=== PATIENT | female | born 1950 | race Caucasian/White ===

== ENCOUNTER 2022-11-06 13:16 | Emergency (ER) | payer OTHER ==
--- OUTSIDE RECORDS SUMMARY | 2022-11-06 13:20 | XMS REPORT | Clinical Summary ---
:1950 Author Organization [facility] MD Fine [facility] Address [address] [place] [address] Care Team Providers Name Role Phone Carlos Ramirez APN Primary Care Provider Allergies No known active allergies Medications Medication Sig Dispensed Refills Start Date End Date Status propranolol Take 120 0 12/18/2018 Active (INDERAL LA) 120 mg capsules 24 hr capsule (14,400 mg) by mouth daily. LANTUS SOLOSTAR Inject 75 0 04/26/2019 Act kishor U-100 INSULIN 100 Units under unit/mL (3 mL) the skin twice insulin pen daily. furosemide (LASIX) Take 1 tablet 0 01/21/2016 Active 20 mg tablet (20 mg) by mouth daily. escitalopram Take 1 tablet 0 10/26/2002 Ac tive (LEXAPRO) 20 mg (20 mg) by tablet mouth daily. amLODIPine Take 1 tablet 0 Activ e (NORVASC) 10 mg (10 mg) by tablet mouth daily. zolpidem (AMBIEN) Take 1 tablet 0 12/25/2017 Active 10 mg tablet (10 mg) by mouth at bedtime. POTASSIUM CHLORIDE Take 20 mEq by 0 08/06/200910/21 Discontinued ORAL mouth daily. Active Problems Problem Noted Date Renal mass 04/26/2019 Encounters Date Type Specialty Care Team Description 10/21/2022 Telemedicine Urology Floyd Robles Renal mass; MD Otto Acquired comple x renal cyst 10/17/2022 Ancillary Procedure Radiology Floyd Robles Renal m ass; MD Otto Acquired comple x renal cyst 10/17/2022 Ancillary Procedure Radiology Floyd Robles Renal m ass; MD Otto Acquired comple x renal cyst 10/17/2022 Travel after 11/06/2021 Medical History Medical History Date Comments Renal mass 04/26/2019 Social History Tobacco Use Types Packs/Day Years Used Date Smoking Tobacco: Never Assessed Sex Assigned at Date Recorded Female 07/15/2021 11:24 AM [employer] Job Start Date Occupation Industry Not on file Not on file Not on file COVID-19 Exposure Response Date Recorded In the last 10 days, have you been in contact with No / Unsu re 10/17/2022 7:37 AM CDT someone who was confirmed or suspected to have Coronavirus/COVID-19? Obstetrics History Last Filed Vital Signs Vital Sign Reading Time Taken Comments Blood Pressure - - Pulse - - Temperature - - Respiratory Rate - - Oxygen Saturation - - Inhaled Oxygen Concentration - - Weight 113.6 kg (250 lb 7.1 oz) 10/17/2022 7:42 AM CDT Height - - Body Mass Index 39.31 09/30/2021 11:16 AM CDT Plan of Treatment Date Type Specialty Care Team Description 10/23/2023 Lab Lab Carlos Ramirez AP N [address] [place], [place] [address] (Wo rk) 10/23/2023 Ancillary Procedure Radiology Carlos Ramirez APN [address] [place], [place] [address] (Wo rk) 10/23/2023 Ancillary Procedure Radiology Carlos Ramirez APN [address] [place], [place] [address] (Wo rk) 10/27/2023 Telemedicine Urology Carlos Ramirez AP N [address] [place], [place] [address] (Wo rk) Health Maintenance Due Date Last Done Comments COVID-19 Vaccination (2 - Moderna series) 08/23/20202020 Procedures Procedure Name Priority Date/Time Associated Comments Diagnosis CT ABDOMEN W CONTRAST Routine 10/17/2022 9:05 Renal mass Results for this AM CDT Acquired complex procedure a re in renal cyst the results section. XR CHEST 2 VW Routine 10/17/2022 8:03 Renal mass Results for this AM CDT Acquired complex procedure a re in renal cyst the results section. FRACTIONATED BILIRUBIN Routine 10/17/2022 7:33 Renal mas s Results for this AM CDT Acquired complex procedure a re in renal cyst the results section. TOTAL PROTEIN Routine 10/17/2022 7:33 Renal mass Results for this AM CDT Acquired complex procedure a re in renal cyst the results section. ASPARTATE Routine 10/17/2022 7:33 Renal mass Results for this AMINOTRANSFERASE AM CDT Acquired complex procedu re are in renal cyst the results section. ALANINE AMINOTRANSFERASE Routine 10/17/2022 7:33 Renal m ass Results for this AM CDT Acquired complex procedure a re in renal cyst the results section. ALKALINE PHOSPHATASE Routine 10/17/2022 7:33 Renal mass Results for this AM CDT Acquired complex procedure a re in renal cyst the results section. ALBUMIN LEVEL Routine 10/17/2022 7:33 Renal mass Results for this AM CDT Acquired complex procedure a re in renal cyst the results section. CALCIUM LEVEL TOTAL Routine 10/17/2022 7:33 Renal mass Results for this AM CDT Acquired complex procedure a re in renal cyst the results section. .GLOMERULAR FILTRATION Routine 10/17/2022 7:33 Renal mas s Results for this RATE AM CDT Acquired complex procedure a re in renal cyst the results section. SERUM CREATININE Routine 10/17/2022 7:33 Renal mass Results for this AM CDT Acquired complex procedure a re in renal cyst the results section. ELECTROLYTE PANEL Routine 10/17/2022 7:33 Renal mass Results for this AM CDT Acquired complex procedure a re in renal cyst the results section. BLOOD UREA NITROGEN Routine 10/17/2022 7:33 Renal mass Results for this AM CDT Acquired complex procedure a re in renal cyst the results section. GLUCOSE LEVEL Routine 10/17/2022 7:33 Renal mass Results for this AM CDT Acquired complex procedure a re in renal cyst the results section. COMPREHENSIVE METABOLIC Routine 10/17/2022 7:33 Renal ma ss PANEL AM CDT Acquired complex renal cyst COMPLETE BLOOD COUNT W/ Routine 10/17/2022 7:33 Renal ma ss Results for this INDICES AM CDT Acquired complex procedure a re in renal cyst the results section. LACTATE DEHYDROGENASE Routine 10/17/2022 7:33 Renal mass Results for this AM CDT Acquired complex procedure a re in renal cyst the results section. after 11/06/[address] Abdomen with Contrast (10/17/2022 9:05 AM CDT) Anatomical Region Laterality Modality Abdomen Computed Tomography Specimen (Source) Anatomical Collection Method Collection Time Re ceived Time Location / / Volume Laterality 10/17/2022 9:22 AM CDT Impressions 10/17/2022 10:24 AM CDT 1. A 2 cm hypodense mass in the interpolar left kidney is stable compared to September 2021, minimally increased in size compared to 2019. Previously showed mild enhancement. 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 2. A 1cm interpolar cystic lesion in t he right kidney has increased in size from 0.5cm, and shows some nodularity vs. septation. Bosniak 2F. 3. 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 4. Stable small nonspecific lung nodul es. I personally reviewed these image(s) jacquie gamboa with the resident's/fellow's interpretations, certify that if a procedure was performed I was physically present, and agree with the final report. Narrative 10/17/2022 10:24 AM CDT Examination: CT ABDOMEN W CONTRAST, 10/17 9:05 AM Clinical History: Renal mass Acquired complex renal cyst Indication: hx Bosniak I/II renal cysts on active surveillance Comparison: CT abdomen 09/22/2021. Technique: CT of the abdomen was perform ed with intravenous contrast. Findings: Several pulmonary and subpleural nodules annotated on series 5 are stable going back to 09/05/2020. There is minimal fibrosis and atelectasi s in the lung bases, similar to prior. Small hepatic hypodensity in segment 5 l ikely represents cyst. The liver is otherwise unremarkable. Status post cholecystectomy. 1.1 cm cystic lesion of the pancreatic h ead is stable compared to 09/30/2021. The spleen is unremarkable. Bilateral adrenal nodules are stable. Kidneys: Hypodense lesion in the interpolar left kidney (series 5 image 77) measuring 2 cm is stable since 2019. A 1 cm cortical cyst with some nodularit y or septation in the interpolar right kidney image 57 series 7 has increased in size previously 0.5 cm. Cyst in the lower pole of the left kidne y (series 5 image 87) has decreased in size to 0.9 cm, previously 1.3 cm. Cyst at the superior pole the left kidne y has increased in size to 1.6 cm (series 5 image 62), previously 1.3 cm. The visualized ureters are within normal limits. Moderate degenerative changes of the tho racolumbar spine. Status post L4-L5 spinal fusion. No soft tissue abnormality identified. Procedure Note Erik Gifford MD - 10/17/2022 Examination: CT ABDOMEN W CONTRAST, 10/17 9:05 AM Clinical History: Renal mass Acquired complex renal cyst Indication: hx Bosniak I/II renal cysts on active surveillance Comparison: CT abdomen 09/22/2021. Technique: CT of the abdomen was perform ed with intravenous contrast. Findings: Several pulmonary and subpleural nodules annotated on series 5 are stable going back to 09/05/2020. There is minimal fibrosis and atelectasi s in the lung bases, similar to prior. Small hepatic hypodensity in segment 5 l ikely represents cyst. The liver is otherwise unremarkable. Status post cholecystectomy. 1.1 cm cystic lesion of the pancreatic h ead is stable compared to 09/30/2021. The spleen is unremarkable. Bilateral adrenal nodules are stable. Kidneys: Hypodense lesion in the interpolar left kidney (series 5 image 77) measuring 2 cm is stable since 2019. A 1 cm cortical cyst with some nodularit y or septation in the interpolar right kidney image 57 series 7 has increased in size previously 0.5 cm. Cyst in the lower pole of the left kidne y (series 5 image 87) has decreased in size to 0.9 cm, previously 1.3 cm. Cyst at the superior pole the left kidne y has increased in size to 1.6 cm (series 5 image 62), previously 1.3 cm. The visualized ureters are within normal limits. Moderate degenerative changes of the tho racolumbar spine. Status post L4-L5 spinal fusion. No soft tissue abnormality identified. IMPRESSION: 1. A 2 cm hypodense mass in the interpol ar left kidney is stable compared to September 2021, minimally increased in size compared to 2019. Previously showed mild enhancement. 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 2. A 1cm interpolar cystic lesion in the right kidney has increased in size from 0.5cm, and shows some nodularity vs. septation. Bosniak 2F. 3. 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 4. Stable small nonspecific lung nodules . I personally reviewed these image(s) jacquie ng with the resident's/fellow's interpretations, certify that if a procedure was performed I was physically present, and agree with the final report. Floyd Robles MD [facility] CT ORDERABLES X-ray Chest 2 Views (10/17/2022 8:03 AM CDT) Anatomical Region Laterality Modality Chest Digital Radiography Specimen (Source) Anatomical Collection Method Collection Time Re ceived Time Location / / Volume Laterality 10/17/2022 8:04 AM CDT Impressions 10/17/2022 8:04 AM CDT No acute cardiac or pulmonary abnormality is detected. There are no radiographic findings of intrathoracic malignancy. Narrative 10/17/2022 8:04 AM CDT FULL RESULT: Examination: XR CHEST 2 VW, 10/17/2022 8: 03 AM. Clinical History: Renal mass [N28.89 (IC D-10-CM)]. Indication: Staging. Comparison: Chest 09/22/2021. Technique: Posteroanterior, lateral and dual-energy radiographs of the chest. Findings: 1. There are no focal abnormal pulmona ry opacities suspicious for acute infection or malignancy. 2. The mediastinal contours and cardia c silhouette are stable. Procedure Note Андрей Coleman MD - 10/17/2022Formatti ng of this note might be different from the original. FULL RESULT: Examination: XR CHEST 2 VW, 10/17/2022 8: 03 AM. Clinical History: Renal mass [N28.89 (IC D-10-CM)]. Indication: Staging. Comparison: Chest 09/22/2021. Technique: Posteroanterior, lateral and dual-energy radiographs of the chest. Findings: 1. There are no focal abnormal pulmonary opacities suspicious for acute infection or malignancy. 2. The mediastinal contours and cardiac silhouette are stable. IMPRESSION: No acute cardiac or pulmonary abnormalit y is detected. There are no radiographic findings of intrathoracic malignancy. Floyd Robles MD [facility] ORDER REBEKAH (ABNORMAL) .Serum Creatinine (10/17/2022 7:33 AM CDT) athologist Signature Creatinine 1.00 (H) 0.51 - 0.95 [facility] mg/dL Comment: Testing Performed at [facility], [address] [place] [address] Specimen Anatomical Collection Method Collection Time Receive d Time (Source) Location / / Volume Laterality Blood 10/17/2022 7:33 AM 7:34 CDT AM CDT Narrative [facility] - 10/17/2022 8:03 AM CDT [facility] please Floyd Robles MD LAB BLOOD ORDERABLES Performing Organization Address City/State/ZIP Code Phon e Number [facility] [address] [facility] (ABNORMAL) Glomerular Filtration Rate (10/17/2022 7:33 AM CDT) athologist Signature eGFR 59 (L) >=60 [facility] mL/min/1.73 sq. m Comment: The eGFRcr is calculated with the 2020 KD-EPI creatinine equation using creatinine, patient's age, and sex for adults 18 years of age and older. Other factors, especially muscle mass, may affect accuracy and need to be considered. According to the Kidney Disease: Improvi ng Global Outcomes (KDIGO) CKD Work Group 2012 Clinical Practice Guideline, chronic kidney disease (CKD) is defined as the abnormalities of kidney structure or function, present for more than 3 months, with implications for health. CKD should be c lassified by cause, GFR category, and albuminuria category. KDIGO guidelines provide the following GFR categories Stage Description GFR mL/min/1.73 m2 G1* Normal or high >= 90 G2* Mildly decreased 60-89 G3a Mildly to moderately decreased 45-59 G3b Moderately to severely decreased 30- 44 G4 Severely decreased 15-29 G5 Kidney failure <15 *In the absence of evidence of kidney da mage, neither G1 nor G2 fulfill criteria for CKD. Testing Performed at [facility], [address] [facility], [place] [address] Specimen Anatomical Collection Method Collection Time Receive d Time (Source) Location / / Volume Laterality Blood 10/17/2022 7:33 AM 3 7:34 CDT AM CDT Narrative [facility] - 10/17/2022 8:03 AM CDT [facility] please Floyd Robles MD LAB BLOOD ORDERABLES Performing Organization Address City/[facility] Phon e Number [facility] [address] Fractionated Bilirubin (10/17/2022 7:33 AM CDT) athologist Signature Bili Total 0.4 <=1.2 mg/dL [facility] Comment: Indocyanine Green (ICG) may cause falsel y elevated bilirubin results. Total and direct bilirubin must not be measured from samples containing indocyanine green. False elevation of total bilirubin can b e seen in patients with IgG concentrations above 28 g/L. Testing Performed at [facility], [address] [place] [address] Bili Direct <0.2 <=0.3 mg/dL [facility] Comment: Indocyanine Green (ICG) may cause falsel y elevated bilirubin results. Total and direct bilirubin must not be measured from samples containing indocyanine green. Testing Performed at [facility], [address] [place] [address] Bili Indirect See Note 0.0 - 0.9 mg/dL [facility] Comment: Unable to calculate Indirect Bilirubin r esult due to some parameters are outside reportable range Testing Performed at [facility], [address] [place] [address] Specimen Anatomical Collection Method Collection Time Receive d Time (Source) Location / / Volume Laterality Blood 10/17/2022 7:33 AM 3 7:34 CDT AM CDT Narrative [facility] - 10/17/2022 8:03 AM CDT [facility] please Floyd Robles MD LAB BLOOD ORDERABLES Performing Organization Address City/[facility] Code Phon e Number [facility] [place] [address] [address] [facility] Complete Blood Count w/o Differential (10/17/2022 7:33 AM CDT) athologist Signature WBC 9.0 4.0 - 11.0 [facility] K/uL Comment: All components of the CBC perfo rmed at [facility], [address] [facility], [place] [phone] RBC 4.59 4.00 - 5.50 M/uL [facility] Comment: As part of CBC testing performe d at [facility], [address] [place] [address], [place] [phone] Hgb 12.8 12.0 - 16.0 gm/dL [facility] Comment: As part of CBC or as an individ ual orderable testing performed at [facility], [address] [place] [phone] Hct 39.8 37.0 - 47.0 % [facility] Comment: As part of CBC or as an individ ual orderable testing performed at [facility], [facility] [place] [phone] MCV 87 82 - 98 fL [facility] Comment: As part of CBC testing performe d at [facility], [address] [facility], [place] [phone] MCH 27.9 27.0 - 31.0 pg [facility] Comment: As part of CBC testing performe d at [facility], [facility], [place] [phone] MCHC 32.2 31.0 - 36.0 gm/dL [facility] Comment: As part of CBC testing performe d at [facility], [address] [facility], [place] [phone] RDW-SD 43.2 35.1 - 46.3 fL [facility] Comment: As part of CBC testing performe d at [facility], [address] [facility], [place] [phone] RDW-CV 13.4 12.0 - 15.5 % [facility] Comment: As part of CBC testing performe d at [facility], [address] [facility], [place] [phone] Platelet count 226 140 - 440 K/uL [facility] [place] Comment: As part of CBC or as an individ ual orderable testing performed at [facility], [address] [place] [phone] MPV 9.7 4.0 - 10.4 fL [facility] Comment: As part of CBC testing performe d at [place] [phone] Specimen Anatomical Collection Method Collection Time Receive d Time (Source) Location / / Volume Laterality Blood 10/17/2022 7:33 AM 3 7:34 CDT AM CDT Narrative [facility] - 10/17/2022 7:38 AM CDT [facility] please Floyd Robles MD LAB BLOOD ORDERABLES Performing Organization Address City/State/ZIP Code Phon e Number [facility] [place] [address] [address] [facility] (ABNORMAL) BUN (10/17/2022 7:33 AM CDT) P athologist Signature BUN 26 (H) 6 - 23 mg/dL [facility] Comment: Testing Performed at [facility], [address] [place] [address] Specimen Anatomical Collection Method Collection Time Receive d Time (Source) Location / / Volume Laterality Blood 10/17/2022 7:33 AM 3 7:34 CDT AM CDT Narrative [facility] - 10/17/2022 8:03 AM CDT [facility] please Floyd Robles MD LAB BLOOD ORDERABLES Performing Organization Address City/State/ZIP Code Phon e Number [facility] [place] [address] ALT (10/17/2022 7:33 AM CDT) P athologist Signature ALT 31 <=33 U/L [facility] Comment: Testing Performed at [facility], [address] [place] [address] Specimen Anatomical Collection Method Collection Time Receive d Time (Source) Location / / Volume Laterality Blood 10/17/2022 7:33 AM 3 7:34 CDT AM CDT Narrative [facility] - 10/17/2022 8:03 AM CDT [facility] please Floyd Robles MD LAB BLOOD ORDERABLES Performing Organization Address City/State/ZIP Code Phon e Number [facility] [address] [facility] Aspartate Aminotransferase (10/17/2022 7:33 AM CDT) athologist Signature AST 30 <=32 U/L [facility] Comment: Testing Performed at [facility], [address] [place] [address] Specimen Anatomical Collection Method Collection Time Receive d Time (Source) Location / / Volume Laterality Blood 10/17/2022 7:33 AM 3 7:34 CDT AM CDT Narrative [facility] - 10/17/2022 8:03 AM CDT [facility] please Floyd Robles MD LAB BLOOD ORDERABLES Performing Organization Address City/[facility]/ZIP Code Phon e Number [facility] [address] Total Protein (10/17/2022 7:33 AM CDT) athologist [facility] Total Protein 7.4 6.4 - 8.3 [facility] g/dL Comment: Testing Performed at [facility], [address] [place] [address] Specimen Anatomical Collection Method Collection Time Receive d Time (Source) Location / / Volume Laterality Blood 10/17/2022 7:33 AM 3 7:34 CDT AM CDT Narrative [facility] - 10/17/2022 8:03 AM CDT [facility] please Floyd Robles MD LAB BLOOD ORDERABLES Performing Organization Address City/State/ZIP Code Phon e Number [facility] [address] [facility] (ABNORMAL) Alkaline Phosphatase (10/17/2022 7:33 AM CDT) athologist Signature Alk Phos 113 (H) 35 - 104 [facility] U/L Comment: Testing Performed at [facility], [address] [place] [address] Specimen Anatomical Collection Method Collection Time Receive d Time (Source) Location / / Volume Laterality Blood 10/17/2022 7:33 AM 3 7:34 CDT AM CDT Narrative [facility] - 10/17/2022 8:03 AM CDT [facility] please Floyd Robles MD LAB BLOOD ORDERABLES Performing Organization Address City/[facility] Code Phon e Number [facility] [address] LDH (10/17/2022 7:33 AM CDT) athologist Signature LDH 166 135 - 214 [facility] U/L Comment: Results greater than 1651 U/L may not be reliable due to matrix effect with extended dilution as it exceeds the aircraft avionics technician's recommended limit. Caution should be exercised when interpreting such values and done in conjunction with clinical context. [place] [address] Specimen Anatomical Collection Method Collection Time Receive d Time (Source) Location / / Volume Laterality Blood 10/17/2022 7:33 AM 3 7:34 CDT AM CDT Narrative [facility] - 10/17/2022 8:06 AM CDT [facility] please Floyd Robles MD LAB BLOOD ORDERABLES Performing Organization Address City/[facility] Code Phon e Number [facility] [address] (ABNORMAL) Glucose Level (10/17/2022 7:33 AM CDT) athologist Signature Glucose Level 166 (H) 70 - 99 [facility] mg/dL Comment: Effective 01/30/16, the glucose reference intervals have been updated based on [place] [employer] guidelines (Standards of Medical Care in Diabetes 2016. Diabetes Care 2016; 39: S13-S22). Fasting blood glucose: Normal: 70 99 mg/dL Impaired fasting glucose (increased risk for diabetes or pre-diabetes): 100- 125 mg/dL Diabetes mellitus: >/=126 mg/dL Random blood glucose: Normal: 70-199 mg/dL Note: Random glucose >100 mg/dL is assoc iated with increased risk for diabetes [place] [address] Specimen Anatomical Collection Method Collection Time Receive d Time (Source) Location / / Volume Laterality Blood 10/17/2022 7:33 AM 3 7:34 CDT AM CDT Narrative [facility] - 10/17/2022 8:03 AM CDT [facility] please Floyd Robles MD LAB BLOOD ORDERABLES Performing Organization Address City/State/ZIP Code Phon e Number [facility] [place] [address] [address] [facility] Calcium Level (10/17/2022 7:33 AM CDT) athologist Signature Calcium Lvl 9.8 8.4 - 10.2 [facility] mg/dL Comment: Testing Performed at [facility], [address] [place] [address] Specimen Anatomical Collection Method Collection Time Receive d Time (Source) Location / / Volume Laterality Blood 10/17/2022 7:33 AM 3 7:34 CDT AM CDT Narrative [facility] - 10/17/2022 8:03 AM CDT [facility] please Floyd Robles MD LAB BLOOD ORDERABLES Performing Organization Address City/[facility] [facility]/ZIP Code Phon e Number [facility] [address] Albumin Level (10/17/2022 7:33 AM CDT) athologist Signature Albumin Lvl 4.0 3.5 - 5.2 [facility] gm/dL Comment: Testing Performed at [facility], [address] [place] [address] Specimen Anatomical Collection Method Collection Time Receive d Time (Source) Location / / Volume Laterality Blood 10/17/2022 7:33 AM 3 7:34 CDT AM CDT Narrative [facility] [place] - 10/17/2022 8:03 AM CDT [facility] please Floyd Robles MD LAB BLOOD ORDERABLES Performing Organization Address City/State/ZIP Code Phon e Number [facility] [place] [address] [address] [facility] (ABNORMAL) Electrolyte Panel (10/17/2022 7:33 AM CDT) athologist Signature Sodium Lvl 133 (L) 136 - 145 [facility] [place] mEq/L Comment: Testing Performed at [facility], [address], [place] [address] Potassium Lvl 4.9 3.5 - 5.1 mEq/L [facility] [place] Comment: Testing Performed at [facility], [address], [place] [address] Chloride 101 98 - 107 mEq/L [facility] Comment: Testing Performed at [facility], [address], [place] [address] CO2 24 22 - 29 mEq/L [facility] Comment: Testing Performed at [facility], [address], [place] [address] Anion Gap 8 4 - 14 mEq/L [facility] Comment: Testing Performed at [facility], [address] [facility], [place] [address] Specimen Anatomical Collection Method Collection Time Receive d Time (Source) Location / / Volume Laterality Blood 10/17/2022 7:33 AM 3 7:34 CDT AM CDT Narrative [facility] [place] - 10/17/2022 8:03 AM CDT [facility] please Floyd Robles MD LAB BLOOD ORDERABLES Performing Organization Address City/State/ZIP Code Phon e Number [facility] MD [facility] [address] after 11/06/2021 Insurance Payer Benefit Plan / Subscriber ID Effective Phone Address T ype Group Dates [facility] MEDICARE [id number] 2020-Prese [address] [address] Medicare HEALTHCARE ADVANTAGE [place] [employer] [id number] Sasha Mathews Personal/Family Self [address] (Home) [place] [phone] Sasha Mathews Personal/Family Self [address] (Home) [place] [id number] Care Teams Lpn Relationship Specialty Start Date End Date Carlos Ramirez APN PCP - General 11/04/[address] [place] [id number]
--- OUTSIDE RECORDS SUMMARY | 2022-11-06 13:21 | XMS REPORT | Continuity of Care Document ---
:1950 Author Organization [facility] t Address [address] [place] [address] [place] [id number] Care Team Providers Name Role Phone LING SMITH Primary Care Physician Unavailable RYDER CAMARA Attending Clinician Unavailable OLI MEDRANO Attending Clinician Unavailable DAVID HODGES Attending Clinician Unavailable FLOYD AVERY Attending Clinician Unavailable Floyd Avery MD Attending Clinician STELLA HOYOS Attending Clinician Unavailable Stella Hoyos NP Attending Clinician [phone] Jc Russell MD Attending Clinician Kaushal Sales MD Attending Clinician HEATHER RIVAS Attending Clinician Unavailable FER PARKS Attending Clinician Unavailable MARQUISE CRUZ Attending Clinician Unavailable CHIP DAWN Attending Clinician Unavailable SOHAM LIGHT Attending Clinician Unavailable MARIZOL CORRALES Attending Clinician Unavailable OLI RON Attending Clinician Unavailable DARYA HOLDEN Attending Clinician Unavailable CAROLINA HOLLIS Attending Clinician Unavailable FELI ARANDA Attending Clinician Unavailable MD ANA CRISTINA SCHMITT V. Attending Clinician Unavailable ANA CRISTINA SCHMITT Attending Clinician Unavailable ISELA WOODRUFF Attending Clinician Unavailable MD ISELA WOODRUFF Attending Clinician Unavailable ADITYA KELLY Attending Clinician Unavailable ISELA ELAINE Attending Clinician Unavailable DAVIE FREED Attending Clinician Unavailable Jc Russell MD Admitting Clinician CHIP DAWN Admitting Clinician Unavailable SOHAM LIGHT Admitting Clinician Unavailable MD ANA CRISTINA SCHMITT V. Admitting Clinician Unavailable ISELA WOODRUFF Admitting Clinician Unavailable MD ISELA WOODRUFF Admitting Clinician Unavailable Payers Payer Name Policy Type Policy Number Effective Date Expiration Date S ource UHC MEDICARE [id number] 2020 2024 ADVANTAGE 00:00:00 00:00:00 UHC MEDICARE [id number] 2020 ADVANTAGE 00:00:00 UNITED MEDICARE [id number] 2021 O 00:00:00 2 C [id number] 2020 00:00:00 2 C [id number] HUMANA MEDICARE NA 2013 Zheng julian ADVANTAGE PPO 00:00:00 [facility] Problems Condition Condition Condition Status Onset Resolution Last Treating Co mments Source Name Details Category Date Date Treatment Clinician Date Polyneurop Polyneurop Disease Active [facility] T athy athy 12-05 Health 00:00: 00 Multifacto Multifacto Disease Active [facility] T rial rial 12-05 Health peripheral peripheral 00:00: neuropathy neuropathy 00 History of History of Disease Active U T laminectom laminectom 12-05 He alth y y 00:00: 00 Diabetic Diabetic Disease Active [facility] polyneurop polyneurop 12-05 He alth athy athy 00:00: associated associated 00 with type with type 2 diabetes 2 diabetes mellitus mellitus Renal mass Renal mass Disease Active 2018-07 U nivers 0-22 ity of 00:00: [place] 00 MD [facility] Rheumatoid Rheumatoid Disease Active M ethodi arthritis arthritis 01-07 st 00:00: Hospita 00 l History of History of Disease Active M ethodi asbestos asbestos 01-07 st exposure exposure 00:00: Hospit a 00 l Complaints Complaints Disease Active M ethodi of of 12-30 [facility] weakness weakness 00:00: Hospit a of lower of lower 00 l extremity extremity Localized Localized Disease Active [facility] primary primary 03-12 st osteoarthr osteoarthr 00:00: Ho spita itis of itis of 00 l lower leg lower leg Sinus Problem Active [place] [facility] Normal Problem Active [place] [facility] Depression Problem [facility] [place] [facility] Diabetes Diabetes Problem Active 2022-03-15 Memoria mellitus mellitus 07:02:37 l type 2 type 2 [place] (disorder) (disorder) Active Problem 03/15/2022 [facility] History of History Problem Active 2022-03-15 Memoria - of - 07:02:37 l rheumatoid rheumatoid [place] arthritis arthritis (context-d (context-d ependent ependent category) category) Active Problem 03/15/2022 [facility] Myocardial Myocardia Problem Active 2022-03-15 Memoria infarction l 07:02:37 l (disorder) infarction [place] (disorder) Active Problem 03/15/2022 [facility] Hyperchole Hyperchol Problem Active 2022-03-15 Memoria sterolemia esterolemi 07:02:37 l (disorder) a Aditya n (disorder) Active Problem 03/15/2022 [facility] Hypertensi Hypertens Problem Active 2022-03-15 Memoria ve kishor 07:02:37 l disorder, disorder, Herm lesli systemic systemic arterial arterial (disorder) (disorder) Active Problem 03/15/2022 [facility] Kidney Kidney Problem Active 2022-03-15 Mem oria structure structure 07:02:37 l (body (body [place] structure) structure) Active Problem 03/15/2022 cancer/cys t left kidney [facility] Morbid Morbid Problem Active 2022-03-15 Nilay efe obesity obesity 07:02:37 l (disorder) (disorder) [place] Active Problem 03/15/2022 [facility] Obstructiv Obstructi Problem Active 2022-03-15 Memoria e sleep ve sleep 07:02:37 l apnea apnea [place] syndrome syndrome (disorder) (disorder) Active Problem 03/15/2022 [facility] Malignant Malignant Problem Active 2022-03-15 Memoria tumor of tumor of 07:02:37 l kidney kidney [place] (disorder) (disorder) Active Problem 03/15/2022 [facility] Stented Stented Problem Active 2022-03-15 Me moria coronary coronary 07:02:37 l artery artery [place] (finding) (finding) Active Problem 03/15/2022 [facility] Cerebrovas Cerebrova Problem Active 2022-03-15 Memoria cular scular 07:02:37 l accident accident Aditya n (disorder) (disorder) Active Problem 03/15/2022 [facility] Urinary Urinary Problem Active 2022-03-15 Me moria tract tract 07:02:37 l infectious infectious [place] disease disease (disorder) (disorder) Active Problem 03/15/2022 [facility] Visceral Visceral Problem Active 2022-03-15 Memoria (qualifier (qualifier 07:02:37 l value) value) [place] Active Problem 03/15/2022 [facility] Disease Disease Problem Active 2022-03-15 M emoria caused by caused by 07:02:37 l 2019-nCoV nCoV Herm lesli Active Problem 03/15/2022 [facility] Mixed Mixed Problem Active 2022-03-15 Memor ia anxiety anxiety 07:02:37 l and and [place] depressive depressive disorder disorder (disorder) (disorder) Active Problem 03/15/2022 [facility] Asbestosis Asbestosi Problem Active 2022-03-15 Memoria (disorder) s 07:02:37 l (disorder) Aditya n Active Problem 03/15/2022 [facility] Backache Backache Problem Active 2022-03-15 Memoria (finding) (finding) 07:02:37 l Active [place] Problem 03/15/2022 [facility] Coronary Coronary Problem Active 2022-03-15 Memoria arterioscl arterioscl 07:02:37 l erosis erosis [place] (disorder) (disorder) Active Problem 03/15/2022 [facility] Allergies, Adverse Reactions, Alerts Allergy Allergy Status Severity Reaction(s) Onset Inactive Treating Comm ents Source Name Type Date Date Clinician Beta Allergy Active [facility] Adrenerg to 12-05 Health ic substanc 00:00: Blockers e 00 Poison Propensi Active Rash [facility] Jocelin ty to 12-05 Health Extract adverse 00:00: reaction 00 s Fentanyl Propensi Active nausea [facility] ty to 08 Health adverse 00:00: reaction 00 s Pyrethri Propensi Active [facility] ns ty to 08 Health adverse 00:00: reaction 00 s No Known NA Active 2020-07 [place] [facility] s 17:20: Memoria 28 l No Known NA Active 2020-07 [place] Allergie lle s 00:01: Memoria 44 l No Known NA Active [place] Allergie 04-04 lle s 07:10: Memoria 09 l No Known NA Active [place] Allergie 04-03 lle s 12:39: Memoria 49 l No Known NA Active [place] Allergie 04-02 lle s 09:54: Memoria 32 l No Known NA Active [place] Allergie 04-02 lle s 09:51: Memoria 25 l No Known NA Active [place] Allergie 04-02 lle s 09:41: Memoria 53 l No Known NA Active [place] Allergie 04-01 lle s 16:32: Memoria 40 l No Known NA Active [place] Allergie 03-28 lle s 09:22: Memoria 45 l No Known NA Active [place] Allergie 03-27 lle s 13:36: Memoria 59 l No Known NA Active [place] Allergie 03-26 lle s 15:47: Memoria 29 l No Known NA Active [place] Allergie 11-30 lle s 12:46: Memoria 32 l No Known NA Active [place] Allergie 11-28 lle s 09:08: Memoria 19 l No Known NA Active [place] Allergie 11-28 lle s 00:00: Memoria 51 l No Known NA Active [place] Allergie 11-27 lle s 09:29: Memoria 41 l No Known NA Active [place] Allergie 11-26 lle s 15:24: Memoria 22 l No Known NA Active [place] Allergie 11-26 lle s 15:22: Memoria 42 l Codeine Propensi Active Rash [facility] Sulfate ty to 01-05 st adverse 00:00: Hospita reaction 00 l s to drug Codeine Allergy Active Rash [facility] to 01-05 Health substanc 00:00: e 00 FENTANYL Allergy Active N\T\V [facility] 6 00:00: 00 TRAMADOL Allergy Active [facility] 6 00:00: 00 Fentanyl Propensi Active Nausea And [facility]10 [facility] adverse [facility]: [facility] reaction 00 Center s Tramadol Propensi Active [facility] 6[facility]10 [facility] adverse 00:[facility]: Medical reaction 00 Center s Tramadol Propensi Active Other (See Increases Methodi ty to Comments) 6-[address] adverse 00:00: rate Hospita reaction 00 l s to drug Tramadol Allergy Active Other [facility] to 6-10 reaction( Health substanc 00:00: s): Other e 00 (See Comments) Increases heart rate Fentanyl Propensi Active GI Method i ty to Intolerance 8-19 st adverse 00:00: Hospita reaction 00 l s to drug Trimetho Propensi Active GI Method i benzamid ty to Intolerance 4-08 st e Hcl adverse 00:00: Hospita reaction 00 l s to drug Codeine Allergy Active [place] to [facility] substanc [facility] e l [facility]ospita l Trimetho Allergy Active [place] benzamid to lle e substanc [facility] e l [facility]ospita l Beta Allergy Active [place] Adrenerg to lle ic substanc Memoria Blockers e l Hospita l [place] Active Nausea and Memori a vomiting l (disorder) Aditya n fentaNYL fentaNYL Active Memori a l [place] Family History Family Member Diagnosis Comments Start Date Stop Date Source Natural father Kidney disease Method [facility] Natural father COPD [facility] Natural father Cancer [facility] Natural father Heart disease [facility] Natural father Hypertension [facility] Maternal grandfather Cancer Meth [facility] Natural mother Arthritis [facility] Natural mother Hypertension [facility] Natural sister Arthritis [facility] Natural sister Asthma [facility] Social History Social Habit Start Date Stop Date Quantity Comments Source Gender identity [facility] Sexual orientation [facility] Exposure to 2022-10-07 2022-10-17 Not sure [facility] SARS-CoV-2 (event) 00:00:00 07:37:00 [facility] Alcohol intake 2020-04-16 2020-04-16 Current Hinduism 00:00:00 00:00:00 non-drinker of Hospital alcohol (finding) History of Social 2020-04-16 2020-04-[address] function 00:00:00 00:00:00 Hospital Tobacco use and 2017-12-13 2017-12-[address] [facility] kes exposure 00:00:00 00:00:00 [facility] Sex Assigned At [birth year] Hinduism 00:00:00 00:00:00 Hospital Smoking Status Start Date Stop Date Source Social History [facility] Medications Ordered Filled Start Stop Current Ordering Indication Dosage Frequency Signature Comments Components Source Medication Medication Date Date Medication? Clinician (SIG) Name Name amLODIPine Yes 10mg Take 1 Unive rs (NORVASC) 4-17 tablet (10 ity of 10 mg 11:32: mg) by [place] tablet 36 mouth MD daily. [facility] labetalol No 60, SBP Memor ia 03-14 Hold l 13:49: Parameter: [place] 00 less than 100 mmHg, HR Hold Parameter: l... hydrALAZINE No 100, if Mem oria 03-14 HR<60 l 13:49: and/or [place] 00 labetalol 25mg reached., SBP Hold Parameter: less th... Demerol HCl No 12.5 mg = M emoria 03-14 0.25 mL, l 13:49: Injection, [place] 00 IV Push, q5min PRN for shivers, order duration: 2 dose(s)/ti me(s), first dose 03/14/22 8:49:00 CDT, stop date Limited # of times fentaNYL No 25 mcg = Memor ia 03-14 0.5 mL, l 13:49: Injection, [place] 00 IV Push, q5min PRN for pain mild-moder ate (1-6), order duration: 2 dose(s)/ti me(s), first dose 03/14/22 8:49:00 CDT, stop date Limited # of times, if pain still unrelieved after second dose, notify Anesthesio logist for furt... ondansetron No 4 mg = 2 Me moria 9- mL, l 13:49: Injection, [place] 00 IV Push, q15min PRN for nausea/vom iting, order duration: 2 dose(s)/ti me(s), first dose 03/14/22 8:49:00 CDT, stop date Limited # of times promethazin No 12.5 mg, Me moria e IVPB 03-14 Injection, l 13:49: IV [place] 00 Piggyback, Once PRN for severe nausea, infuse over 15 minutes, first dose 03/14/22 8:49:00 CDT diphenhydrA No 12.5 mg = M emoria MINE 03-14 0.25 mL, l 13:49: Injection, [place] 00 IV Push, q15min PRN for allergy symptoms, order duration: 2 dose(s)/ti me(s), first dose 03/14/22 8:49:00 CDT, stop date Limited # of times labetalol No 60, SBP Memor ia 03-14 Hold l 13:49: Parameter: [place] 00 less than 100 mmHg, HR Hold Parameter: l... hydrALAZINE No 100, if Mem oria 03-14 HR<60 l 13:49: and/or [place] 00 labetalol 25mg reached., SBP Hold Parameter: less th... Demerol HCl No 12.5 mg = M emoria - 0.25 mL, l 13:49: Injection, [place] 00 IV Push, q5min PRN for shivers, order duration: 2 dose(s)/ti me(s), first dose 03/14/22 8:49:00 CDT, stop date Limited # of times fentaNYL No 25 mcg = Memor ia 03-14 0.5 mL, l 13:49: Injection, [place] 00 IV Push, q5min PRN for pain mild-moder ate (1-6), order duration: 2 dose(s)/ti me(s), first dose 03/14/22 8:49:00 CDT, stop date Limited # of times, if pain still unrelieved after second dose, notify Anesthesio logist for furt... ondansetron No 4 mg = 2 Me moria 9- mL, l 13:49: Injection, [place] 00 IV Push, q15min PRN for nausea/vom iting, order duration: 2 dose(s)/ti me(s), first dose 03/14/22 8:49:00 CDT, stop date Limited # of times promethazin No 12.5 mg, Me moria e IVPB 03-14 Injection, l 13:49: IV [place] 00 Piggyback, Once PRN for severe nausea, infuse over 15 minutes, first dose 03/14/22 8:49:00 CDT diphenhydrA No 12.5 mg = M emoria MINE 03-14 0.25 mL, l 13:49: Injection, [place] 00 IV Push, q15min PRN for allergy symptoms, order duration: 2 dose(s)/ti me(s), first dose 03/14/22 8:49:00 CDT, stop date Limited # of times labetalol No 60, SBP Memor ia 03-14 Hold l 13:49: Parameter: [place] 00 less than 100 mmHg, HR Hold Parameter: l... hydrALAZINE No 100, if Mem oria 03-14 HR<60 l 13:49: and/or [place] 00 labetalol 25mg reached., SBP Hold Parameter: less th... Demerol HCl No 12.5 mg = M emoria - 0.25 mL, l 13:49: Injection, [place] 00 IV Push, q5min PRN for shivers, order duration: 2 dose(s)/ti me(s), first dose 03/14/22 8:49:00 CDT, stop date Limited # of times fentaNYL No 25 mcg = Memor ia 03-14 0.5 mL, l 13:49: Injection, [place] 00 IV Push, q5min PRN for pain mild-moder ate (1-6), order duration: 2 dose(s)/ti me(s), first dose 03/14/22 8:49:00 CDT, stop date Limited # of times, if pain still unrelieved after second dose, notify Anesthesio logist for furt... ondansetron No 4 mg = 2 Me moria - mL, l 13:49: Injection, [place] 00 IV Push, q15min PRN for nausea/vom iting, order duration: 2 dose(s)/ti me(s), first dose 03/14/22 8:49:00 CDT, stop date Limited # of times promethazin No 12.5 mg, Me moria e IVPB 03-14 Injection, l 13:49: IV [place] 00 Piggyback, Once PRN for severe nausea, infuse over 15 minutes, first dose 03/14/22 8:49:00 CDT diphenhydrA No 12.5 mg = M emoria MINE 03-14 0.25 mL, l 13:49: Injection, [place] 00 IV Push, q15min PRN for allergy symptoms, order duration: 2 dose(s)/ti me(s), first dose 03/14/22 8:49:00 CDT, stop date Limited # of times Saline Lock No 20 mL, Nilay efe Flush 03-14 Soln, IV l 13:19: Push, As Indicated PRN for flush, first dose 03/14/22 8:19:00 CDT [place] 5 No Notes: Max Nilay efe mg-325 mg 03-14 4gm l oral tablet 13:19: acetaminop hen in 24 hours Saline Lock No 20 mL, Nilay efe Flush 03-14 Soln, IV l 13:19: Push, As Indicated PRN for flush, first dose 03/14/22 8:19:00 CDT [place] 5 2021-0 No Notes: Max Nilay efe mg-325 mg 9- 4gm l oral tablet 13:19: acetaminop hen in 24 hours Saline Lock 2021-0 No 20 mL, Nilay efe Flush 03-14 Soln, IV l 13:19: Push, As Indicated PRN for flush, first dose 03/14/22 8:19:00 CDT Walton 5 2021-0 No Notes: Max Nilay efe mg-325 mg 9- 4gm l oral tablet 13:19: acetaminop hen in 24 hours Lidocaine 2021-0 No 5 mg = 0.5 Me moria pf IV start 9-09 mL, l 0.5mL 13:00: Injection, Aditya huerta [TOPS] 00 Subcutaneo us, Once, first dose 03/14/22 8:00:00 CDT, stop date 03/14/22 8:00:00 CDT, For IV Start Lidocaine No 5 mg = 0.5 Me moria pf IV start 9-09 mL, l 0.5mL 13:00: Injection, Aditya huerta [TOPS] 00 Subcutaneo us, Once, first dose 03/14/22 8:00:00 CDT, stop date 03/14/22 8:00:00 CDT, For IV Start Lidocaine 2021-0 No 5 mg = 0.5 Me moria pf IV start 9-09 mL, l 0.5mL 13:00: Injection, Aditya huerta [TOPS] 00 Subcutaneo us, Once, first dose 03/14/22 8:00:00 CDT, stop date 03/14/22 8:00:00 CDT, For IV Start Lactated 2021-0 No IV, start Nilay efe Ringers 03-14 date l Injection 12:54: 03/14/22 Herm lesli 00 7:54:00 CDT, stop date 03/14/22 7:54:00 CDT Lactated 2021-0 No IV, start Nilay efe Ringers 03-14 date l Injection 12:54: 03/14/22 Herm lesli 00 7:54:00 CDT, stop date 03/14/22 7:54:00 CDT Lactated 2-0 No IV, start Nilay efe Ringers 03-14 date l Injection 12:54: 03/14/22 Herm lesli 00 7:54:00 CDT, stop date 03/14/22 7:54:00 CDT lidocaine 2-0 No 100 mg = 5 Me moria 9-09 mL, l 12:48: Injection, [place] 00 IV, Once, first dose 03/14/22 7:48:00 CDT, stop date 03/14/22 7:48:00 CDT propofol 2-0 No 20 mg = 2 Nilay efe 9- mL, l 12:48: Emulsion, [place] 00 IV, Once, first dose 03/14/22 7:48:00 CDT, stop date 03/14/22 7:48:00 CDT lidocaine 2022-0 No 100 mg = 5 Me moria 9- mL, l 12:48: Injection, [place] 00 IV, Once, first dose 03/14/22 7:48:00 CDT, stop date 03/14/22 7:48:00 CDT propofol 2-0 No 20 mg = 2 Nilay efe 9- mL, l 12:48: Emulsion, [place] 00 IV, Once, first dose 03/14/22 7:48:00 CDT, stop date 03/14/22 7:48:00 CDT lidocaine 2-0 No 100 mg = 5 Me moria 9- mL, l 12:48: Injection, [place] 00 IV, Once, first dose 03/14/22 7:48:00 CDT, stop date 03/14/22 7:48:00 CDT propofol 2-0 No 20 mg = 2 Nilay efe 9- mL, l 12:48: Emulsion, [place] 00 IV, Once, first dose 03/14/22 7:48:00 CDT, stop date 03/14/22 7:48:00 CDT LR 500 mL 2-0 No 500 mL, Memor ia 9- IV, 100 l 12:31: mL/hr, [place] 00 start date 03/14/22 7:31:00 CDT, For GI & Pain procedures unless known renal disease then use Normal Saline, 2.25, m2 LR 500 mL 0 No 500 mL, Memor ia 9-09 IV, 100 l 12:31: mL/hr, start date 03/14/22 7:31:00 CDT, For GI & Pain procedures unless known renal disease then use Normal Saline, 2.25, m2 LR 500 mL No 500 mL, Memor ia 9-09 IV, 100 l 12:31: mL/hr, [place] 00 start date 03/14/22 7:31:00 CDT, For GI & Pain procedures unless known renal disease then use Normal Saline, 2.25, m2 labetalol No 60, SBP Memor ia 7-29 Hold l 14:13: Parameter: [place] 00 less than 100 mmHg, HR Hold Parameter: l... hydrALAZINE No 100, if Mem oria - HR<60 l 14:13: and/or [place] 00 labetalol 25mg reached., SBP Hold Parameter: less th... Demerol HCl No 12.5 mg = M emoria - 0.5 mL, l 14:13: Injection, [place] 00 IV Push, q5min PRN for shivers, order duration: 2 dose(s)/ti me(s), first dose 01/31/22 9:13:00 CDT, stop date Limited # of times ondansetron No 4 mg = 2 Me moria 7-29 mL, l 14:13: Injection, [place] 00 IV Push, q15min PRN for nausea/vom iting, order duration: 2 dose(s)/ti me(s), first dose 01/31/22 9:13:00 CDT, stop date Limited # of times promethazin No 12.5 mg, Me moria e IVPB 7- Injection, l 14:13: IV [place] 00 Piggyback, Once PRN for severe nausea, infuse over 15 minutes, first dose 01/31/22 9:13:00 CDT labetalol No 60, SBP Memor ia 7-29 Hold l 14:13: Parameter: [place] 00 less than 100 mmHg, HR Hold Parameter: l... hydrALAZINE 0 No 100, if Mem oria 7-29 HR<60 l 14:13: and/or [place] 00 labetalol 25mg reached., SBP Hold Parameter: less th... Demerol HCl No 12.5 mg = M emoria 7-29 0.5 mL, l 14:13: Injection, [place] 00 IV Push, q5min PRN for shivers, order duration: 2 dose(s)/ti me(s), first dose 01/31/22 9:13:00 CDT, stop date Limited # of times ondansetron No 4 mg = 2 Me moria 7-29 mL, l 14:13: Injection, [place] 00 IV Push, q15min PRN for nausea/vom iting, order duration: 2 dose(s)/ti me(s), first dose 01/31/22 9:13:00 CDT, stop date Limited # of times promethazin No 12.5 mg, Me moria e IVPB 7- Injection, l 14:13: IV [place] 00 Piggyback, Once PRN for severe nausea, infuse over 15 minutes, first dose 01/31/22 9:13:00 CDT labetalol 0 No 60, SBP Memor ia 7-29 Hold l 14:13: Parameter: [place] 00 less than 100 mmHg, HR Hold Parameter: l... hydrALAZINE 0 No 100, if Mem oria 7-29 HR<60 l 14:13: and/or [place] 00 labetalol 25mg reached., SBP Hold Parameter: less th... Demerol HCl No 12.5 mg = M emoria 7-29 0.5 mL, l 14:13: Injection, [place] 00 IV Push, q5min PRN for shivers, order duration: 2 dose(s)/ti me(s), first dose 01/31/22 9:13:00 CDT, stop date Limited # of times ondansetron 0 No 4 mg = 2 Me moria 7-29 mL, l 14:13: Injection, [place] 00 IV Push, q15min PRN for nausea/vom iting, order duration: 2 dose(s)/ti me(s), first dose 01/31/22 9:13:00 CDT, stop date Limited # of times promethazin No 12.5 mg, Me moria e IVPB 7-29 Injection, l 14:13: IV [place] Piggyback, Once PRN for severe nausea, infuse over 15 minutes, first dose 01/31/22 9:13:00 CDT Saline Lock No 20 mL, Nilay efe Flush 7-29 Soln, IV l 13:43: Push, As [place] 00 Indicated PRN for flush, first dose 01/31/22 8:43:00 CDT [place] 5 No Notes: Max Nilay efe mg-325 mg 7-29 4gm l oral tablet 13:43: acetaminop hen in 24 hours Saline Lock No 20 mL, Nilay efe Flush 7-29 Soln, IV l 13:43: Push, As Indicated PRN for flush, first dose 01/31/22 8:43:00 CDT [place] 5 No Notes: Max Nilay efe mg-325 mg 7-29 4gm l oral tablet 13:43: acetaminop hen in 24 hours Saline Lock No 20 mL, Nilay efe Flush 7-29 Soln, IV l 13:43: Push, As Indicated PRN for flush, first dose 01/31/22 8:43:00 CDT [place] 5 No Notes: Max Nilay efe mg-325 mg 7-29 4gm l oral tablet 13:43: acetaminop hen in 24 hours Lactated No IV, start Nilay efe Ringers 7-29 date l Injection 13:39: 01/31/22 Herm lesli 8:39:00 CDT, stop date 01/31/22 8:39:00 CDT Lactated 0 No IV, start Nilay efe Ringers 7-29 date l Injection 13:39: 01/31/22 Herm lesli 00 8:39:00 CDT, stop date 01/31/22 8:39:00 CDT Lactated 2022-0 No IV, start Nilay efe Ringers 7-29 date l Injection 13:39: 01/31/22 Herm lesli 00 8:39:00 CDT, stop date 01/31/22 8:39:00 CDT lidocaine 2021-0 No 30 mg = 3 Mem oria 7-29 mL, l 13:34: Injection, [place] 00 IV, Once, first dose 01/31/22 8:34:00 CDT, stop date 01/31/22 8:34:00 CDT propofol 2021-0 No 30 mg = 3 Nilay efe 7-29 mL, l 13:34: Emulsion, [place] 00 IV, Once, first dose 01/31/22 8:34:00 CDT, stop date 01/31/22 8:34:00 CDT lidocaine 2021-0 No 30 mg = 3 Mem oria 7-29 mL, l 13:34: Injection, [place] 00 IV, Once, first dose 01/31/22 8:34:00 CDT, stop date 01/31/22 8:34:00 CDT propofol 2021-0 No 30 mg = 3 Nilay efe 7-29 mL, l 13:34: Emulsion, [place] 00 IV, Once, first dose 01/31/22 8:34:00 CDT, stop date 01/31/22 8:34:00 CDT lidocaine 2021-0 No 30 mg = 3 Mem oria 7-29 mL, l 13:34: Injection, [place] 00 IV, Once, first dose 01/31/22 8:34:00 CDT, stop date 01/31/22 8:34:00 CDT propofol 2021-0 No 30 mg = 3 Nilay efe 7-29 mL, l 13:34: Emulsion, [place] 00 IV, Once, first dose 01/31/22 8:34:00 CDT, stop date 01/31/22 8:34:00 CDT ketamine 2-0 No 25 mg = Memori a 7-29 2.5 mL, l 13:32: Injection, [place] 00 IV, Once, first dose 01/31/22 8:32:00 CDT, stop date 01/31/22 8:32:00 CDT ketamine 2-0 No 25 mg = Memori a 7-29 2.5 mL, l 13:32: Injection, [place] 00 IV, Once, first dose 01/31/22 8:32:00 CDT, stop date 01/31/22 8:32:00 CDT ketamine 2-0 No 25 mg = Memori a 01-31 2.5 mL, l 13:32: Injection, [place] 00 IV, Once, first dose 01/31/22 8:32:00 CDT, stop date 01/31/22 8:32:00 CDT midazolam 2-0 No 2 mg = 2 Nilay efe 7- mL, l 13:30: Injection, [place] 00 IV, Once, first dose 01/31/22 8:30:00 CDT, stop date 01/31/22 8:30:00 CDT ondansetron 2021-0 No 4 mg = 2 Me moria 7- mL, l 13:30: Injection, [place] 00 IV, Once, first dose 01/31/22 8:30:00 CDT, stop date 01/31/22 8:30:00 CDT midazolam 2021-0 No 2 mg = 2 Nilay efe 7- mL, l 13:30: Injection, [place] 00 IV, Once, first dose 01/31/22 8:30:00 CDT, stop date 01/31/22 8:30:00 CDT ondansetron 2021-0 No 4 mg = 2 Me moria 7- mL, l 13:30: Injection, [place] 00 IV, Once, first dose 01/31/22 8:30:00 CDT, stop date 01/31/22 8:30:00 CDT midazolam 2021-0 No 2 mg = 2 Nilay efe 7- mL, l 13:30: Injection, [place] 00 IV, Once, first dose 01/31/22 8:30:00 CDT, stop date 01/31/22 8:30:00 CDT ondansetron 2021-0 No 4 mg = 2 Me moria 7-29 mL, l 13:30: Injection, [place] 00 IV, Once, first dose 01/31/22 8:30:00 CDT, stop date 01/31/22 8:30:00 CDT LR 500 mL 2021-0 No 500 mL, Memor ia 7 IV, 100 l 11:10: mL/hr, [place] 00 start date 01/31/22 6:10:00 CDT, For Adults unless there is a known renal disease then use Normal Saline, 2.26, m2 LR 500 mL 2022-0 No 500 mL, Memor ia 7-29 IV, 100 l 11:10: mL/hr, start date 01/31/22 6:10:00 CDT, For Adults unless there is a known renal disease then use Normal Saline, 2.26, m2 LR 500 mL 2-0 No 500 mL, Memor ia 7-29 IV, 100 l 11:10: mL/hr, start date 01/31/22 6:10:00 CDT, For Adults unless there is a known renal disease then use Normal Saline, 2.26, m2 Lidocaine 2-0 No 5 mg = 0.5 Me moria pf IV start 7-29 mL, l 0.5mL 11:00: Injection, Aditya huerta [TOPS] 00 Subcutaneo us, Once, first dose 01/31/22 6:00:00 CDT, stop date 01/31/22 6:00:00 CDT, For IV Start Lidocaine 2-0 No 5 mg = 0.5 Me moria pf IV start 7-29 mL, l 0.5mL 11:00: Injection, Aditya huerta [TOPS] 00 Subcutaneo us, Once, first dose 01/31/22 6:00:00 CDT, stop date 01/31/22 6:00:00 CDT, For IV Start Lidocaine 2-0 No 5 mg = 0.5 Me moria pf IV start 7-29 mL, l 0.5mL 11:00: Injection, Aditya huerta [TOPS] 00 Subcutaneo us, Once, first dose 01/31/22 6:00:00 CDT, stop date 01/31/22 6:00:00 CDT, For IV Start olmesartan 2022-0 Yes 40 mg, Memor ia 7-27 Oral, l 18:08: Daily olmesartan 2022-0 Yes 40 mg, Memor ia 7-27 Oral, l 18:08: Daily olmesartan 2022-0 Yes 40 mg, Memor ia 7-27 Oral, l 18:08: Daily Macrobid 2021-0 Yes 100 mg, Memori a 7-27 Oral, l 18:07: Daily Flexeril 2021-0 Yes 10 mg, Memoria 7-27 Oral, qHS l 18:07: Macrobid 2021-0 Yes 100 mg, Memori a 7-27 Oral, l 18:07: Daily Flexeril 2021-0 Yes 10 mg, Memoria 7-27 Oral, qHS l 18:07: [place] 00 Macrobid 2021-0 Yes 100 mg, Memori a 7-27 Oral, l 18:07: Daily Flexeril 2021-0 Yes 10 mg, Memoria 7-27 Oral, qHS l 18:07: HumaLOG 2021-0 Yes Subcutaneo Nilay efe 7-27 us l 18:06: HumaLOG 2021-0 Yes Subcutaneo Nilay efe 7-27 us l 18:06: [place] 00 HumaLOG 2021-0 Yes Subcutaneo Nilay efe 7-27 us l 18:06: [place] 00 buprenorphi 0 Yes APPLY ONE U T ne 5-06 [facility] 00:00: TRANSDERMA 15 MCG/HR 00 LLY EVERY 7 DAYS buprenorphi 2021-0 Yes APPLY ONE U T ne 5-06 [facility]ATCH [facility] 00:00: TRANSDERMA 15 MCG/HR 00 LLY EVERY 7 DAYS potassium 2021-0 Yes 20meq QD Take 20 UT chloride CR 4-11 mEq by Health (Klor-Con 00:00: mouth 1 M20) 20 MEQ 00 (one) time ER tablet each day. potassium 0 Yes 20meq QD Take 20 UT chloride CR 4-11 mEq by Health (Klor-Con 00:00: mouth 1 M20) 20 MEQ 00 (one) time ER tablet each day. amLODIPine 0 Yes QD Take by [place] (Norvasc) 5 3-08 mouth 1 Healt h MG tablet 14:57: (one) time 26 each day. buprenorphi 2021-0 Yes 1{patch Place 1 UT ne 3-08 } patch on Health (Butrans) 14:57: the skin 1 10 MCG/HR 26 (one) time per week. escitalopra 2022-0 Yes 20mg QD Take 20 mg UT m (Lexapro) 3-08 by mouth 1 He alth 20 MG 14:57: (one) time tablet 26 each day. furosemide 2022-0 Yes QD Take by UT (Lasix) 20 3-08 mouth 1 Health MG tablet 14:57: (one) time 26 each day. olmesartan 2022-0 Yes 20mg QD Take 20 mg U T (BENIcar) 3-08 by mouth 1 Heal th 20 MG 14:57: (one) time tablet 26 each day. potassium 2022-0 Yes 20meq QD Take 20 UT chloride 3-08 mEq by Health (Klor-Con) 14:57: mouth 1 20 MEQ 26 (one) time packet each day. propranolol 2022-0 Yes 120mg QD Take 120 U T [place] (Inderal 3-08 mg by [facility] [place]) 120 MG 14:57: mouth 1 24 hr 26 (one) time capsule each day. Do not crush, chew, or split. tiZANidine 2022-0 Yes 4mg Q6H Take 4 mg UT (Zanaflex) 3-08 by mouth Healt h 4 MG tablet 14:57: every 6 26 (six) hours if needed for muscle spasms. Zolpidem 2022-[address] UT Tartrate 10 3-08 under the Hea lth MG 14:57: tongue. sublingual 26 tablet insulin 2-0 Yes 44U Q.5D Inject 44 UT glargine 3-08 Units Health (Lantus) 14:57: under the 100 UNIT/ML 26 skin 2 injection (two) times a day. insulin 2022-0 Yes [id number] Inject UT lispro 3-08 [id number] under the He alth (HumaLOG) 14:57: 3D skin 3 100 UNIT/ML 26 (three) injection times a day if needed for high blood sugar. amLODIPine 2022-0 Yes QD Take by UT (Norvasc) 5 3-08 mouth 1 Healt h MG tablet 14:57: (one) time 26 each day. buprenorphi 2022-0 Yes 1{patch Place 1 UT ne 3-08 } patch on Health (Butrans) 14:57: the skin 1 10 MCG/HR 26 (one) time per week. escitalopra 2022-0 Yes 20mg QD Take 20 mg UT m (Lexapro) 3-08 by mouth 1 He alth 20 MG 14:57: (one) time tablet 26 each day. furosemide 2022-0 Yes QD Take by UT (Lasix) 20 3-08 mouth 1 Health MG tablet 14:57: (one) time 26 each day. olmesartan 2022-0 Yes 20mg QD Take 20 mg U T (BENIcar) 3-08 by mouth 1 Heal th 20 MG 14:57: (one) time tablet 26 each day. potassium 2022-0 Yes 20meq QD Take 20 UT chloride 3-08 mEq by Health (Klor-Con) 14:57: mouth 1 20 MEQ 26 (one) time packet each day. propranolol 202-0 Yes 120mg QD Take 120 U T [place] (Inderal 3-08 mg by Health [place]) 120 MG 14:57: mouth 1 24 hr 26 (one) time capsule each day. Do not crush, chew, or split. tiZANidine 2021-0 Yes 4mg Q6H Take 4 mg UT (Zanaflex) 3-08 by mouth Healt h 4 MG tablet 14:57: every 6 26 (six) hours if needed for muscle spasms. Zolpidem 2021-[address] UT Tartrate 10 3-08 under the Hea lth MG 14:57: tongue. sublingual 26 tablet insulin 2021-0 Yes 44U Q.5D Inject 44 UT glargine 3-08 Units Health (Lantus) 14:57: under the 100 UNIT/ML 26 skin 2 injection (two) times a day. insulin 2021-0 Yes [id number] Inject UT lispro 3-08 [id number] under the He alth (HumaLOG) 14:57: 3D skin 3 100 UNIT/ML 26 (three) injection times a day if needed for high blood sugar. potassium 2019-07 No 10 mEq = 1 Me moria chloride 10 2-17 caps, l mEq oral 19:59: Oral, [place] capsule, 00 Daily extended release potassium 2019-07 No 10 mEq = 1 Me moria chloride 10 2-17 caps, l mEq oral 19:59: Oral, [place] capsule, 00 Daily extended release potassium 2019-07 No 10 mEq = 1 Me moria chloride 10 2-17 caps, l mEq oral 19:59: Oral, [place] capsule, Daily extended release Butrans 2019-07 Yes 1 patches, Nilay efe System 10 2-17 TD, q7day l mcg/hr 19:58: [place] transdermal 00 film, extended release propranolol 2019-07 Yes 120 mg, Mem oria 2-17 Oral, l 19:58: Daily Butrans 2019-07 Yes 1 patches, Nilay efe System 10 2-17 TD, q7day l mcg/hr 19:58: [place] transdermal 00 film, extended release propranolol 2019-07 Yes 120 mg, Mem oria 2-17 Oral, l 19:58: Daily Butrans 2019-07 Yes 1 patches, Nilay efe System 10 2-17 TD, q7day l mcg/hr 19:58: [place] transdermal 00 film, extended release propranolol 2019-07 Yes 120 mg, Mem oria 2-17 Oral, l 19:58: Daily Ambien 2019-07 Yes 10 mg, Memoria 2-17 Oral, qHS l 19:57: amLODIPine 2019-07 Yes 5 mg, Memori a 2-17 Oral, l 19:57: Daily furosemide 2019-07 Yes 20 mg, Memor ia 2-17 Oral, l 19:57: Daily Lantus 2019-07 Yes 44 units, Memori a 2-17 Subcutaneo l 19:57: us, BID Ambien 2019-07 Yes 10 mg, Memoria 2-17 Oral, qHS l 19:57: amLODIPine 2019-07 Yes 5 mg, Memori a 2-17 Oral, l 19:57: Daily furosemide 2019-07 Yes 20 mg, Memor ia 2-17 Oral, l 19:57: Daily Lantus 2019-07 Yes 44 units, Memori a 2-17 Subcutaneo l 19:57: us, BID Ambien 2019-07 Yes 10 mg, Memoria 2-17 Oral, qHS l 19:57: amLODIPine 2019-07 Yes 5 mg, Memori a 2-17 Oral, l 19:57: Daily [place] 00 furosemide 2019-07 Yes 20 mg, Memor ia 2-17 Oral, l 19:57: Daily Lantus 2019- Yes 44 units, Memori a 2-17 Subcutaneo l 19:57: us, BID Albuterol 2019-07 Yes 2 puffs, Nilay efe (Eqv-ProAir 2-17 MDI, q6hr, l HFA) 19:56: PRN wheezing Lexapro 2019- Yes 20 mg, Memoria 2-17 Oral, l 19:56: Daily Albuterol 2019-07 Yes 2 puffs, Nilay efe (Eqv-ProAir 2-17 MDI, q6hr, l HFA) 19:56: PRN wheezing Lexapro 2019- Yes 20 mg, Memoria 2-17 Oral, l 19:56: Daily Albuterol 2019-07 Yes 2 puffs, Nilay efe (Eqv-ProAir 2-17 MDI, q6hr, l HFA) 19:56: PRN wheezing Lexapro 2019- Yes 20 mg, Memoria 2-17 Oral, l 19:56: Daily zolpidem 2019-0 Yes 10mg QD Take 10 mg Met hodi (AMBIEN) 10 8-[address] mg tablet 13:13: nightly as Ho spita 12 needed for l sleep. atorvastati 2019-0 Yes 20mg QD Take 20 mg Methodi n (LIPITOR) 8-[address] 20 MG 13:13: daily. Hospita tablet 12 Default OP l ins amLODIPine 2019-0 Yes 10mg QD Take 10 mg M ethodi (NORVASC) 8-[address] 10 mg 13:13: daily. Hospita tablet 12 l insulin 2020-0 Yes 80U QD Inject 80 Metho di GLARGINE 8-[address] (LANTUS) 13:13: under the Hosp omid 100 unit/mL 12 skin l injection nightly. (vial) insulin 2020-0 Yes [id number] Inject Me thodi lispro 8-[id number] (HUMALOG, 13:13: 3D skin 3 Hospit a ADMELOG) 12 (three) l 100 unit/mL times a injection day before meals. Sliding scale albuterol Yes 2{puff} Q.5D Inhale 2 M ethodi (PROAIR 8-[address] HFA) 90 13:13: (two) Hospita mcg/actuati 12 times a l on inhaler day as needed for wheezing. magnesium Yes 400mg QD Take 400 Met hodi oxide 8-[address] (MAG-OX) 13:13: mouth Hospita 400 mg 12 daily. l (241.3 mg magnesium) tablet propranolol Yes 120mg QD Take 120 M ethodi [place] (INDERAL 8-[address] [place]) 120 MG 13:13: mouth Hospit a 24 hr 12 daily. l capsule LANTUS 2018-07 Yes 75U Inject 75 Univer s SOLOSTAR 0-22 Units ity of U-100 00:00: under the [place] INSULIN 100 00 skin twice MD unit/mL (3 daily. Anderso mL) insulin n [facility] LANTUS Yes 52U QD Inject 52 Method i SOLOSTAR 7-[address] U-100 00:00: under the [facility] INSULIN 100 00 skin l unit/mL nightly injection for 90 (pen) days. propranolol Yes [id number] Take 120 Univers (INDERAL 6-15 capsules ity of [place]) 120 mg 00:00: ([place],400 [place] 24 hr 00 mg) by CT capsule mouth Anderso daily. [facility] zolpidem Yes 10mg Take 1 Univers (AMBIEN) 10 6-22 tablet (10 it y of mg tablet 00:00: mg) by [place] 00 mouth at MD bedtime. Andmegao [facility] zolpidem Yes . [facility] St (AMBIEN) 10 6-22 [facility] mg tablet 00:00: Medical 00 [place] escitalopra Yes . [facility] oxalate 6-05 [facility] (LEXAPRO) 00:00: Medical 20 MG 00 [place] tablet atorvastati Yes . [facility] (LIPITOR) 6-01 [facility] 20 MG 00:00: Medical tablet 00 [place] olmesartan Yes . [facility] (BENICAR) 5-30 [facility] 20 MG 00:00: Medical tablet 00 [place] propranolol Yes . [facility] St (INDERAL 5-30 [facility] [place]) 80 MG 00:00: Medical 24 hr 00 Center capsule magnesium Yes . [facility] St oxide 5-13 [facility] (MAG-OX) 00:00: Medical 400 mg 00 Center tablet potassium Yes . [facility] St chloride SA 5-13 [facility] (K-DUR,KLOR 00:00: Medica l -CON) 20 00 Center MEQ tablet amLODIPine Yes . [facility] St (NORVASC) 5 4-28 [facility] MG tablet 00:00: Medical 00 Center furosemide Yes . [facility] St (LASIX) 20 4-12 [facility] MG tablet 00:00: Medical 00 Center LANTUS Yes . [facility] SOLOSTAR 4-03 [facility] U-100 00:00: Medical INSULIN 100 00 [place] unit/mL (3 mL) InPn furosemide Yes 20mg Take 1 Unive rs (LASIX) 20 7-18 tablet (20 ity of mg tablet 00:00: mg) by [place] 00 mouth MD daily. [facility] furosemide Yes 20mg QD Take 20 mg M ethodi (LASIX) 20 7-[address] MG tablet 00:00: every Hospita 00 morning. l escitalopra Yes 20mg QD Take 20 mg Methodi m (LEXAPRO) 6-[address] 20 MG 00:00: every Hospita tablet 00 morning. l Take the morning of surgery potassium Yes 20meq QD Take 20 Meth helder chloride 6-[address] (K-DUR) 20 00:00: mouth Hospit a MEQ CR 00 every l tablet morning. METFORMIN METFORMIN Yes 500 TWICE A [place] HYDROCHLORI HYDROCHLORI 6-22 DAY (0900; lle DE DE 22:27: 2100) Memoria (METFORMIN (METFORMIN 00 l 500 MG TAB) 500 MG TAB) H ospita 500 MG TAB 500 MG TAB l FLUCONAZOLE FLUCONAZOLE Yes 150 Q7DAYS [place] (FLUCONAZOL (FLUCONAZOL 6-22 l le E 150 MG E 150 MG 22:26: Memor ia TAB) 150 MG TAB) 150 MG 00 l TAB TAB Hospita l POTASSIUM POTASSIUM Yes 20 THREE TIME [place] CHLORIDE CHLORIDE 6-22 A lle (POTASSIUM (POTASSIUM 22:26: DAY(09;15; Memoria CHLORIDE CHLORIDE 00 21) l ER) 20 MEQ ER) 20 MEQ Hos dixon TAB TAB l Potassium Potassium Yes 25 THREE TIME [place] Bicarb & Bicarb & 923 A lle Chloride Chloride 23:28: DAY(; Memoria (POTASSIUM (POTASSIUM 00 21) l CHLORIDE 25 CHLORIDE 25 H ospita MEQ TAB) 25 MEQ TAB) 25 l MEQ TAB MEQ TAB Ciprofloxac Ciprofloxac Yes 500 TWICE A [place] in HCl in HCl 03-28 DAY (0900; lle (CIPROFLOXA (CIPROFLOXA 23:27: 2100) Memoria ROOPA 500 MG ROOPA 500 MG 00 l TAB) 500 MG TAB) 500 MG H ospita TAB TAB l Tramadol Tramadol Yes 50 FOUR TIMES [place] Hcl (ULTRAM Hcl (ULTRAM 03-28 A DAY lle 50 MG TAB) 50 MG TAB) 23:25: (0900) as Memoria 50 MG TAB 50 MG TAB 00 needed for l PAIN Hospita l Ciprofloxac Ciprofloxac Yes 500 TWICE A [place] in HCl in HCl 03-20 DAY (0900; lle (CIPRO 500 (CIPRO 500 12:42: 2100) Memoria MG TAB) 500 MG TAB) 500 00 l MG TAB MG TAB Hospita l IBUPROFEN IBUPROFEN Yes 600 THREE TIME [place] (MOTRIN 600 (MOTRIN 600 9-15 A l le MG TAB) 600 MG TAB) 600 12:42: DAY(; Memoria MG TAB MG TAB 00 21) l Hospita l Levocetiriz Levocetiriz Yes 5 EVERY 24 [place] ine ine 9-15 HOURS lle Dihydrochlo Dihydrochlo 12:42: Memoria ride (XYZAL ride (XYZAL 00 l 5MG) 5 MG 5MG) 5 MG Hospi ta TAB TAB l POTASSIUM 2022- No 20meq Take 20 Uni vers CHLORIDE 08-06 04-18 mEq by ity of ORAL 00:00: 00:00 mouth [place] 00 :00 daily. MD [facility] escitalopra 2002- Yes 20mg Take 1 Univ ers m (LEXAPRO) 4-23 tablet (20 it y of 20 mg 00:00: mg) by [place] tablet 00 mouth MD daily. [facility] Atorvastati Atorvastati Yes 10 EVERY DAY [place] n Calcium n Calcium @ 0900 lle (LIPITOR 10 (LIPITOR 10 M emoria MG TAB) 10 MG TAB) 10 l MG TAB MG TAB Hospita l Hctz Hctz Yes 25 EVERY DAY [place] (Hydrochlor (Hydrochlor @ 0900 lle othiazide) othiazide) Mem oria 1 POW POW 1 POW POW l Hospita l SERTRALINE SERTRALINE Yes 25 EVERY DAY [place] HCL HCL @ 0900 lle (SERTRALINE (SERTRALINE M emoria 25 MG TAB) 25 MG TAB) l 25 MG TAB 25 MG TAB Hospi ta l Sulfamethox Sulfamethox Yes 1 TWICE A [place] azole-Trime azole-Trime DAY (0900; lle thoprim thoprim 2100) Memoria (BACTRIM SS (BACTRIM SS l 400 MG/80 400 MG/80 Hospi ta MG TAB) 400 MG TAB) 400 l MG/80 MG MG/80 MG TAB TAB ZOLPIDEM ZOLPIDEM Yes 10 EVERY DAY [place] TARTRATE TARTRATE @ 0900 lle (AMBIEN 10 (AMBIEN 10 Mem oria MG TAB) 10 MG TAB) 10 l MG TAB MG TAB Hospita l Immunizations Ordered Immunization Filled Immunization Date Status Commen ts Source Name Name COVID-19 Charlya 18 2020-07-26 Completed [facility] alth & Over Vaccination 00:00:00 COVID-19 Moderna 12 2020-07-26 Completed [facility] alth & Over Vaccination 00:00:00 (RAND SEWER) Tdap 2018-01-01 Completed [facility] 00:[facility]:00 Tdap 2018-01-01 Completed [facility] 00:00:00 Tdap 2018-01-01 Completed DARY Franz 00:00:00 [facility] 2009-07-09 Completed [facility] [id number], 00:00:00 all formulations Novel 2009-07-09 Completed [facility] [id number], 00:00:00 all formulations PPD Test 2007-02-08 Completed [facility] 00:00:00 PPD Test 2007-02-08 Completed [facility] 00:00:00 Vital Signs Vital Name Observation Time Observation Value Comments Source WEIGHT 2022-05-19 13:55:00 115.667 kg WEIGHT 2022-05-19 13:55:00 115.667 kg Systolic blood 2022-01-09 18:29:00 155 mm[Hg] [facility] pressure Diastolic blood 2022-01-09 18:29:00 87 mm[Hg] [facility] pressure Heart rate 2022-01-09 18:29:00 62 /min [facility] Body height 2022-01-09 18:29:00 170.2 cm [facility] Body weight 2022-01-09 18:29:00 117.209 kg [facility] BMI 2022-01-09 18:29:00 40.47 kg/m2 [facility] Systolic blood 2021-12-05 18:18:00 136 mm[Hg] [facility] pressure Diastolic blood 2021-12-05 18:18:00 63 mm[Hg] [facility] pressure Heart rate 2021-12-05 18:18:00 68 /min [facility] Body temperature 2021-12-05 18:18:00 36.44 Karla [facility] Respiratory rate 2021-12-05 18:18:00 18 /min [facility] Body weight 2021-12-05 18:18:00 116.847 kg [facility] BMI 2021-12-05 18:18:00 39.17 kg/m2 [facility] Oxygen saturation in 2021-12-05 18:18:00 96 /min [facility] Arterial blood by Pulse oximetry HEIGHT 2019-12-29 00:00:00 170.2 cm WEIGHT 2019-12-29 00:00:00 115.667 kg HEIGHT 2019-12-29 00:00:00 170.2 cm WEIGHT 2019-12-29 00:00:00 115.667 kg Body weight 2022-10-17 12:42:00 113.6 kg [facility] MD [facility] BMI 2022-10-17 12:42:00 39.31 kg/m2 [facility] MD [facility] Systolic blood 2022-05-19 15:05:00 170 mm[Hg] [facility] Diastolic blood 2022-05-19 15:05:00 82 mm[Hg] [facility] Heart rate 2022-05-19 15:05:00 64 /min [facility] Body temperature 2022-05-19 15:05:00 36.67 Karla [facility] Respiratory rate 2022-05-19 15:05:00 18 /min [facility] Oxygen saturation in 2022-05-19 15:05:00 98 /min [facility] Arterial blood by Medical Ce nter Pulse oximetry Body weight 2022-05-19 13:55:00 115.667 kg [facility] BMI 2022-05-19 13:55:00 39.94 kg/m2 [facility] Heart Rate 2022-03-14 13:15:00 [facility] [place] Respitory Rate 2022-03-14 13:15:00 Memori al [place] Systolic (mm Hg) 2022-03-14 13:15:00 Nilay rial [place] Diastolic (mm Hg) 2022-03-14 13:15:00 Mem orial [place] Heart Rate 2022-03-14 13:00:00 [facility] [place] Respitory Rate 2022-03-14 13:00:00 Memori al [place] Systolic (mm Hg) 2022-03-14 13:00:00 Nilay rial [place] Diastolic (mm Hg) 2022-03-14 13:00:00 Mem orial [place] Temperature Oral (F) 2022-03-14 12:45:00 36.3 Karla [facility] [place] Heart Rate 2022-03-14 12:45:00 [facility] [place] Respitory Rate 2022-03-14 12:45:00 Memori al [place] Systolic (mm Hg) 2022-03-14 12:45:00 Nilay rial [place] Diastolic (mm Hg) 2022-03-14 12:45:00 Mem orial [place] Temperature Oral (F) 2022-03-14 12:12:00 36.6 Karla [facility] [place] Height 2022-03-14 12:12:00 170 cm [facility] [place] Weight 2022-03-14 12:12:00 [facility] [place] Height 2022-03-12 19:43:00 170 cm [facility] [place] Weight 2022-03-12 19:43:00 [facility] [place] Heart Rate 2022-01-31 14:00:00 [facility] [place] Respitory Rate 2022-01-31 14:00:00 Memori al [place] Systolic (mm Hg) 2022-01-31 14:00:00 Nilay rial [place] Diastolic (mm Hg) 2022-01-31 14:00:00 Mem orial [place] Heart Rate 2022-01-31 13:45:00 [facility] [place] Respitory Rate 2022-01-31 13:45:00 Memori al [place] Systolic (mm Hg) 2022-01-31 13:45:00 Nilay rial [place] Diastolic (mm Hg) 2022-01-31 13:45:00 Mem orial [place] Temperature Oral (F) 2022-01-31 13:30:00 36.7 Karla [facility] [place] Heart Rate 2022-01-31 13:30:00 [facility] [place] Respitory Rate 2022-01-31 13:30:00 Memori al [place] Systolic (mm Hg) 2022-01-31 13:30:00 Nilay rial [place] Diastolic (mm Hg) 2022-01-31 13:30:00 Mem orial [place] Height 2022-01-31 10:52:00 170 cm [facility] [place] Weight 2022-01-31 10:52:00 [facility] [place] Temperature Oral (F) 2022-01-31 10:52:00 36.7 Karla [facility] [place] Height 2022-01-29 17:48:00 170 cm [facility] [place] Weight 2022-01-29 17:48:00 [facility] [place] Procedures Procedure Date / Time Performing Clinician Source Performed CT ABDOMEN W CONTRAST 2022-10-17 [facility]:05[facility]W 2022-10-17 13:03:26 Floyd Avery [facility] LACTATE DEHYDROGENASE 2022-10-17 12:33[facility] W/ 2022-10-17 12:33:21 Floyd Avery [facility] COMPREHENSIVE METABOLIC 2022-10-17 12:33:21 Floyd Avery [facility] PANEL [facility] GLUCOSE LEVEL 2022-10-17 12:33:21 Floyd Avery [facility] BLOOD UREA NITROGEN 2022-10-17 12:33:21 Floyd Avery [facility] ELECTROLYTE PANEL 2022-10-17 12:33:21 Floyd Avery [facility] SERUM CREATININE 2022-10-17 12:33:21 Floyd Avery [facility] .GLOMERULAR FILTRATION 2022-10-17 12:33:21 Floyd Avery [facility] RATE [facility] CALCIUM LEVEL TOTAL 2022-10-17 12:33:21 Floyd Avery [facility] ALBUMIN LEVEL 2022-10-17 12:33:21 Floyd Avery [facility] ALKALINE PHOSPHATASE 2022-10-17 12:33:21 [facility] ALANINE AMINOTRANSFERASE 2022-10-17 12:33:21 Floyd Avery [facility] ASPARTATE AMINOTRANSFERASE 2022-10-17 12:33:21 Floyd Avery [facility] TOTAL PROTEIN 2022-10-17 12:33:21 Floyd Avery [facility] FRACTIONATED BILIRUBIN 2022-10-17 12:33:21 Floyd Avery [facility] XR HIP 2 VIEWS RIGHT 2022-05-19 14:20:00 Stella Hoyos [facility] INJECTION ANESTHETIC AGENT 2022-03-14 12:51:00 M emoriut [place] STEROID TRANSFORAMINAL CERV/THOR; SINGLE [id number] (Right)<sup>1</sup> US RENAL LIMITED 2019-03-31 00:00:00 [facility] Knee replacement [facility] n back injections [facility] Colonoscopy [facility] Plan of Care Planned Activity Planned Date Details Comments Source Future Scheduled 2028-01-02 DTAP/TDAP/TD VACCINES [facility] Test 00:00:00 (2 - Td or Tdap) [code Medic al Center = DTAP/TDAP/TD VACCINES (2 - Td or Tdap)] Future Scheduled 2023-05-[address] [facility] Test 00:00:00 [facility] r Screening (12+) [code = Tobacco Cessation Counseling and Screening (12+)] Future Scheduled 2023-03-[address] [facility] Test 00:00:00 (Season Ended) [code = Medic al Center INFLUENZA VACCINE (Season Ended)] Future Scheduled 2022-11-03 COVID-19 VACCINE (#1) [facility] Test 12:13:17 [code = COVID-19 VACCINE (#1)] Future Scheduled 2022-11-03 Hepatitis C screening [facility] Test 12:13:17 (procedure) [code = [id number]] Future Scheduled 2022-11-03 BREAST CANCER [facility] Test 12:13:17 SCREENING [code = BREAST CANCER SCREENING] Future Scheduled 2022-11-03 COLONOSCOPY SCREENING [facility] Test 12:13:17 [code = COLONOSCOPY SCREENING] Future Scheduled 2022-11-03 SHINGLES VACCINES (1 Met [facility] Test 12:13:17 of 2) [code = SHINGLES VACCINES (1 of 2)] Future Scheduled 2022-11-03 65+ PNEUMOCOCCAL [facility] Test 12:13:17 VACCINE (1 - PCV) [code = 65+ PNEUMOCOCCAL VACCINE (1 - PCV)] Future Scheduled 2022-11-03 INFL[facility]ZA VACCINE [facility] Test 12:13:17 [code = INFLUENZA VACCINE] Future Scheduled 2022-10-22 COVID-19 Vaccination [facility] Test 08:05:32 (2 - Moderna series) [facility] [code = COVID-19 Center Vaccination (2 - Moderna series)] Future Scheduled 2022-07-[address] [facility] Test 00:00:00 (12+) [code = Medical Center DEPRESSION SCREENING (12+)] Future Scheduled 2022-07-06 FALLS RISK SCREENING [facility] Test 00:00:00 [code = FALLS RISK Medical C enter SCREENING] Future Scheduled 2020 COVID-19 VACCINE (2 - [facility] Test 00:00:00 Moderna series) [code Medica l Center = COVID-19 VACCINE (2 - Moderna series)] Future Scheduled 2018-07-[address] [facility] Test 00:00:00 WELLNESS (YEAR 2 or Medical Center FIRST YEAR if no IPPE) [code = MEDICARE ANNUAL WELLNESS (YEAR 2 or FIRST YEAR if no IPPE)] Future Scheduled 2013 PNEUMOCOCCAL 65+ YRS [facility] Test 00:00:00 (1 - PCV) [code = Medical Ce nter PNEUMOCOCCAL 65+ YRS (1 - PCV)] Future Scheduled 1998 SHINGLES VACCINES ([address] [facility] Test 00:00:00 of 2) [code = SHINGLES Medic al Center VACCINES (1 of 2)] Future Scheduled 1966 HEPATITIS C SCREENING [facility] Test 00:00:00 [code = HEPATITIS C Medical Center SCREENING] Future Scheduled [address] [facility] Test 00:00:00 [facility] neoplasm of [place] [facility] [code = 410612318] Future Scheduled [address] [facility] 00:00:00 (combo) [code = CT Medical C enter Colonography (combo)] Future Scheduled [address] [facility] 00:[facility]:00 malignant neoplasm [facility] colon (procedure) [code = 639082141] Future Scheduled [address] [facility] 00:00:00 malignant ne[facility] colon (procedure) [code = 973053597] Future Scheduled 1950 DXA SCAN [code = DXA [facility] Test 00:00:00 SCAN] [facility] Future Scheduled [address] [facility] 00:00:00 malignant ne[facility] colon (procedure) [code = 881200324] Future Scheduled [address] [facility] 00:00:00 malignant ne[facility] colon (procedure) [code = 797032422] Future Scheduled 1950 Sigmoidoscopy [facility]code [facility] Cent[facility] r Encounters Start End Encounter Admission Attending Care Care Encounter Source Date/Time Date/Time Type Type Clinicians Facility Department ID 2021-09-12 Outpatient JAX, [facility] [id number] [place] 10:02:30 RYDER [facility] 2021-09-10 Outpatient NATALIE [facility] [id number] [place] 16:18:43 OLI Chanel [facility] 2021-08-02 Outpatient CARROLL [facility] [id number] [place] 15:09:15 [facility] 2021-08-02 Outpatient CARROLL [facility] [id number] [place] 15:09:15 [facility] 2021-05-17 Outpatient [facility] [id number] [place] 14:53:51 [facility] 2022-10-22 2022-10-22 Outpatient MAXINE AVERY MDA MDA [id number] 08:06:07 08:06:07 FLOYD huerta 2022-10-21 2022-10-21 Telemedici Travis, 1.2.840.1 [id number] [facility] 15:00:00 15:30:00 ne [place] 96101.1.1 [place] 3.412.2.7 [place] .3.481091 .8 [facility] 2022-10-17 2022-10-17 Ancillary Travis, 1.2.840.1 [id number] [facility] 08:30:00 10:55:00 Procedure [place] 22714.1.1 [place] 3.412.2.7 [place] .3.792943 .8 [facility] 2022-10-17 2022-10-17 Ancillary Travis 1.2.840.1 [id number] [facility] 09:15:00 09:30:00 Procedure [place] 46947.1.1 [place] 3.412.2.7 [place] .3.903601 MD Hartman8 [facility] 2022-10-17 2022-10-17 Outpatient MAXINE AVERY MDA MDA [id number] 07:38:47 07:38:47 FLOYD huerta 2022-10-17 2022-10-17 Outpatient MAXINE AVERY MDA MDA [id number] 07:38:31 07:38:31 FLOYD Rogersmega huerta 2022-10-17 2022-10-17 Outpatient MAXINE AVERY [facility] [id number] 07:25:03 07:34:29 FLOYDJOCELYN Mccloud angelia huerta 2022-10-17 2022-10-17 Travel 1.2.840.1 [id number] [id number] [facility] 00:00:00 00:00:00 05229.1.1 350.1.13.41 ity of 3.412.2.7 2.[place].3.698 [place] .3.530384 084.8 .8 [facility] 2022-05-19 2022-05-19 Emergency ER [facility] Emergency [id number] [facility] 13:43:00 15:09:00 [facility] 2022-05-19 2022-05-19 Emergency [facility] [id number] 13:43:00 15:09:00 [facility] 2022-05-19 2022-05-19 Travel [facility] [id number] [facility] 00[facility]00 [facility] 2022-03-14 2022-03-14 Outpatient nullFlavo TOP [id number] Memoria 12:43:46 13:48:00 r Surgical l [facility] 2022-03-14 2022-03-14 Outpatient nullFlavo [facility] [id number] Memoria 12:43:46 13:48:00 r Surgical l [facility] 2022-03-14 2022-03-14 Outpatient Jc Russell [id number] 07:43:46 08:48:00 2 2022-03-14 2022-03-[address] [facility] [id number] Memoria 07:43:46 08:48:00 r dave [place] 2022-01-31 2022-02-01 Outpatient nullFlavo TOPS [id number] Memoria 10:50:12 04:59:59 r Surgical l [facility] 2022-01-31 2022-02-01 Outpatient nullFlavo TOP [id number] Memoria 10:50:12 04:59:59 r Surgical l [facility] 2022-01-31 2022-01-31 Outpatient Jc Russell [id number] 05:50:12 23:59:59 2 2022-01-31 2022-01-[address] [facility] [id number] Memoria 05:50:12 23:59:59 r l [place] 2022-01-09 2022-01-09 [facility] 6410 1.2.840.114 [id number] [place] 13:30:00 14:40:[address] 350.1.13.58 Health 9.2.7.2.686 [id number] 2021-12-05 2021-12-05 Office Jarretleandra [facility] 6410 1.2.840.114 1 [id number] [place] 13:30:00 14:25:[address] 350.1.13.58 Health 9.2.7.2.686 [id number] 2021-10-24 2021-10-24 Outpatient EL ROB, MDA MDA [id number] 08:39:53 08:39:53 HEATHER Mccloud o deanna 2021-10-02 2021-10-02 [facility] 6410 1.2.840.114 [id number] [place] 13:00:00 14:16:[address] 350.1.13.58 Health 9.2.7.2.686 [id number] 2021-09-30 2021-09-30 Outpatient EL ROB, MDA MDA [id number] 11:07:42 11:07:42 SURECHELA Rogers o n 2021-09-30 2021-09-30 Outpatient EL ROB, MDA MDA [id number] 11:07:18 11:07:18 SURECHELA Rogers o n 2021-09-30 2021-09-30 Outpatient EL ROB, MDA MDA [id number] 10:48:52 10:53:08 SURECHELA Rogers o n 2021-09-18 2021-09-18 Outpatient KASEY [facility] [id number] [facility] 11:46:00 16:56:00 FER 2021-09-10 2021-09-10 Office CHARLY Medrano 6410 [id number] [id number] [place] 14:30:00 16:19:06 Visit Oli PARHAM 350.1.13.58 [facility] 9.2.7.2.686 [id number] 2021-08-12 2021-08-12 Emergency E ANTHONY, TW TW 7526 TW 11:24:00 13:23:00 MARQUISE 2021-04-04 2021-04-04 Outpatient 3 LÓPEZ, HVLMo MOP [id number] [place] 07:10:00 07:10:00 CHIP 930 lle Memoria l 2021-03-28 2021-03-28 Outpatient 3 KULDEEP HVLMo CAT [id number] 210 [place] 09:22:00 09:22:00 SOHAM 923 lle Memoria l 2020-11-27 2020-11-27 Outpatient 3 UKLDEEP HVLMo MOP [id number] 210 [place] 09:29:00 09:29:00 SOHAM 525 lle Memoria l 2020-10-18 2020-10-18 [facility] [id number] Memoria 13:11:00 23:59:[address] [facility] 2020-09-05 2020-09-05 Outpatient MAXIEN RON MDA MDA [id number] 12:40:10 12:53:24 OLI Blue derso n 2020-09-05 2020-09-05 Outpatient MAXINE RON MDA MDA [id number] 11:27:02 11:27:02 OLI crockerso deanna 2020-09-05 2020-09-05 Outpatient MAXINE RON MDA MDA [id number] 11:26:32 11:26:32 OLI crockerso deanna 2020-05-07 2020-05-07 Outpatient NAVIN [facility] [id number] [place] 00:00:00 00:00:00 DARYA 421 Method i 2020-05-07 2020-05-07 Outpatient NAVIN, [facility] [id number] 759 [place] 00:00:00 00:00:00 DARYA 743 Method i 2020-04-16 2020-04-16 Emergency BUNNY, [facility] [id number] [place] 00:00:00 00:00:00 CAROLINA 432 Method i 2020-04-05 2020-04-05 Outpatient ROSI, [facility] [id number] [place] 00:00:00 00:00:00 FELI 178 Method i 2020-04-05 2020-04-05 Outpatient ROSI, [facility] [id number] [place] 00:00:00 00:00:00 FELI 070 Method i 2020-04-05 2020-04-05 Outpatient ROSI, [facility] [id number] [place] 00:00:00 00:00:00 FELI 079 Method i 2020-04-02 2020-04-02 Outpatient KESHIA, [facility] [id number] [place] 00:00:00 00:00:00 ANA CRISTINA 005 Method i 2020-02-14 2020-02-14 Outpatient RANJAN, [facility] [id number] 750 [place] 00:00:00 00:00:00 ISELA 856 Method i 2020-02-10 2020-02-10 Outpatient RANJAN, [facility] [id number] 928 [place] 00:00:00 00:00:00 ISELA 864 Method i 2019-12-29 2019-12-29 Emergency ER [facility] Emergency [id number] [facility] 17:47:00 17:47:00 2019-07-22 2019-07-22 Outpatient ARGENTINA, [facility] [id number] 932 [place] 00:00:00 00:00:00 ISELA 472 Method i 2019-06-18 2019-06-18 Outpatient FREED, [facility] [id number] [place] 00:00:00 00:00:00 DAVIE berrios 2019-03-31 2019-03-31 Registered [facility] H000 [id number] [place] 11:26:00 11:26:[address] Results Test Description Test Time Test Comments Results Result Sourc e Comments RAD, HIP, 2-3 2022-05-19 Reason for VIEWS, RIGHT, TO 14:34:00 exam:->HIP PAIN INCL PELVIS [facility]ARC[facility]A : 1950 Sex: F *FINAL REPORT RAD, HIP, 2-3 VIEWS, RIGHT, TO INCL PELVIS WHEN PERFORMED INDICATION: HIP PAIN COMPARISON: None TECHNIQUE: AP and lateral radiographs of the right hip FINDINGS/IMPRESSION: No acute fracture or malalignment Signed: Gail Tobar Verified Date/Time: 05/19/2022 14:34:02 Reading Location: [address] Reading Room RATORY 2022-03-14 12:07:00 Test Item Value Reference Range Interpretation Comme nts Blood Glucose, Capillary (test code = Blood Glucose, Capillary) 225 74-106 [id number] 12:07:00 Test Item Value Reference Range Interpretation Comments Blood Glucose, Capillary (test code = 225 74-106 Blood Glucose, Capillary) [id number] 12:07:00 Test Item Value Reference Range Interpretation Comments Blood Glucose, Capillary (test code = 225 74-106 Blood Glucose, Capillary) [id number] 11:21:00 Test Item Value Reference Range Interpretation Comments Blood Glucose, Capillary (test code = 189 74-106 Blood Glucose, Capillary) [id number] 11:21:00 Test Item Value Reference Range Interpretation Comments Blood Glucose, Capillary (test code = 189 74-106 Blood Glucose, Capillary) [id number] 11:21:00 Test Item Value Reference Range Interpretation Comments Blood Glucose, Capillary (test code = 189 74-106 Blood Glucose, Capillary) Estevan Pederson-CoV-2 (COVID-19) RNA [Presence] in Respiratory specimen by ASHLEY with probe [id number] 04:06:53 Test Item Value Reference Range Interpretation Comments SARS-CoV-2 (COVID-19) RNA Not detected Not-Detected [Presence] in Respiratory specimen by ASHLEY with probe detection (test code = 36190-4) LAVINIA BARLOWRS-CoV-2 (COVID-19) RNA [Presence] in Respiratory specimen by ASHLEY with probe [id number] 22:00:51 Test Item Value Reference Range Interpretation Comments SARS-CoV-2 (COVID-19) RNA Not detected Not-Detected [Presence] in Respiratory specimen by ASHLEY with probe detection (test code = 84292-6) LAVINIA RINGSARS-COV2/RT-PCR ([facility])2020-01-06 10:47:00 Test Item Value Reference Range Interpretation Comments SARS-COV2/RT-PCR (test code = Negative Not Detected, Negative 3795183) SARS-COV-2 PERFORMING LAB CPL (test code = 6593619) CT, CHEST, WITHOUT [id number] 19:50:00Reason for exam:->RASHWhat is the patient's sedation requirement?->No SedationFINAL REPORT CT, CHEST, WITHOUT CONTRAST INDICATION: Shortness of breathRASH COM PARISON: None TECHNIQUE: Noncontrast axially oriented images were obtained from the thoracic inlet through the lung bases. Coronal and sagittal reformats were provided. DOSE REDUCTION: Dose modulation,iterative reconstruction, and/or weight-based adjustment of the mA/kV was utilized to reduce the radiation dose to as low as reasonably achievable. FINDINGS: Lungs and Pleura: Small groundglass opacityis noted in the medial posterior right lung. Left lung is clear. No effusion or pneumothorax.Centralairways: Patent.Mediastinum: No adenopathy.Heart and pericardium: Normal.Great vessels: Normal calibers. Included upper abdomen: No acute abnormalities.Regional skeletal structures: Intact. Additional findings: None. IMPRESSION: Focal groundglass opacity in the posterior right lung is nonspecific and may reflect atypical or viral pneumonia in the appropriate clinical context. Signed: JR Liu Robert MDReport Verified Date/Time: 12/29/2019 19:50:32 Reading Location: [facility] C013T TransitionalReading Room
[2022-11-06] MEDS ORDERED: LIDOCAINE 1% MPF 5 ML VIAL ONE (14:10)
[2022-11-06] MEDS ORDERED: BUPIVACAINE 0.5% PF 10 ML VIAL ONE (14:10)
--- NOTE | 2022-11-06 15:12 | EDPHYS ---
Physician Documentation [facility] Name: Sasha Mathews Age: 72 yrs Sex: Female : 1950 Arrival Date: 11/06/2022 Time: 13:16 Bed 10 Private MD: ED Physician Srini Harvey HPI: 11/06 15:39 This 72 yrs old Female presents to ER via Wheelchair with complaints of ingrown toenail.kb 15:39 The patient presents with pain. The complaints affect the right first toe. Context: the kb patient can fully bear weight, the patient is able to ambulate. Onset: The symptoms/episode began/occurred 2 week(s) ago. Modifying factors: The symptoms are alleviated by nothing, the symptoms are aggravated by nothing. Associated signs and symptoms: The patient has no apparent associated signs or symptoms. Severity of symptoms: At their worst the symptoms were mild, moderate, in the emergency department the symptoms are unchanged. The patient has experienced similar episodes in the past. The patient has not recently seen a physician. Pt reports ingrown nail to right great toe that started 2 weeks ago. States she cut it and tried to get it out, but was unsuccessful. Historical: - Allergies: 13:46 Codeine; aa5 - PMHx: 13:46 Diabetes - IDDM; Hyperlipidemia; Hypertension; aa5 - PSHx: 13:46 knee replacement; aa5 ROS: 15:36 Constitutional: Negative for fever, chills, and weight loss. kb 15:36 MS/extremity: Positive for pain, of the right first toe. 15:36 All other systems are negative. Exam: 15:38 Constitutional: This is a well developed, well nourished patient who is awake, alert, kb and in no acute distress. Head/Face: Normocephalic, atraumatic. ENT: Moist Mucous membranes Respiratory: Respirations even and unlabored. No increased work of breathing. Talking in full sentences Skin: Warm, dry with normal turgor. Normal color. MS/ Extremity: Pulses equal, no cyanosis. Neurovascular intact. Full, normal range of motion. Neuro: Awake and alert, GCS 15, oriented to person, place, time, and situation. Moves all extremities. Normal gait. Psych: Awake, alert, with orientation to person, place and time. Behavior, mood, and affect are within normal limits. 15:38 Musculoskeletal/extremity: Nails: ingrown nail to right great toe with mild erythema and swelling. Vital Signs: 13:44 BP 143 / 95; Pulse 66; Resp 18 S; Temp 98.4(TE); Pulse Ox 98% on R/A; aa5 Procedures: 14:35 Nerve block: (digital) of right first toe Medication: Lidocaine 1% without epinephrine kb Marcaine 0.5%, Amount: 5 mls were injected, Effect: the patient has resolution of the pain, Set up for procedure. Performed by Christiana LOPES Patient tolerated well. MDM: 13:42 Patient medically screened. kb 14:35 Data reviewed: vital signs, nurses notes. kb 15:36 Differential diagnosis: ingrown nail, abscess, cellulitis. 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 15:37 ED course: attempted to remove ingrown nail. Nail is brittle and chips away. Pt kb educated to follow up with podiatry.. Administered Medications: 14:17 Drug: Lidocaine Infiltration (1 %) 1 vials Volume: 5 ml; Route: Infiltration; mb9 14:17 Drug: Bupivacaine Infiltration (0.5 %) 1 vials Volume: 10 ml; Route: Infiltration; mb9 Disposition: 16:11 Co-signature as Attending Physician, Srini Harvey MD I reviewed the patient's care rn provided by the Advanced Practice Provider and agree with the diagnosis and treatment plan. Disposition Summary: 11/06/22 15:11 Discharge Ordered Location: Home kb Condition: Stable kb Diagnosis - Ingrowing nail kb Followup: kb - With: Emergency Department - When: As needed - Reason: Worsening of condition Followup: kb - With: Private Physician - When: 2 - 3 days - Reason: Recheck today's complaints, Continuance of care, Re-evaluation by your physician Discharge Instructions: - Discharge Summary Sheet kb - Ingrown Toenail kb Forms: - Medication Reconciliation Form kb - Thank You Letter kb - Antibiotic Education kb - Prescription Opioid Use kb Prescriptions: - Cephalexin 500 mg Oral Capsule - take 1 capsule by ORAL route every 8 hours for 10 days; 30 capsule; Refills: 0, kb Product Selection Permitted Signatures: Christiana Valdez, [employer] [employer]ACH[employer]DER SQUEEZE-Srini Brown MD MD rn Cristel Martinez RN RN aa5 Breann Nicole RN RN mb9
--- NOTE | 2022-11-06 15:12 | ER ---
Nurse's Notes [facility] Name: Sasha Mathews Age: 72 yrs Sex: Female : 1950 Arrival Date: 11/06/2022 Time: 13:16 Bed 10 Private MD: Diagnosis: Ingrowing nail Presentation: 11/06 13:44 Chief complaint: Patient states: "I was trying to get my ingrown toe nail by myself and aa5 now it's very tender". Pt reports ingrown toe nail to right great toe. 13:44 Method Of Arrival: Wheelchair aa5 13:44 Coronavirus screen: At this time, the client does not indicate any symptoms associated aa5 with coronavirus-19. Ebola Screen: Patient denies travel to an Ebola-affected area in the 21 days before illness onset. Initial Sepsis Screen: Does the patient meet any 2 criteria? No. Patient's initial sepsis screen is negative. Does the patient have a suspected source of infection? No. Patient's initial sepsis screen is negative. Risk Assessment: Do you want to hurt yourself or someone else? Patient reports no desire to harm self or others. Onset of symptoms was November 2022. 13:44 Acuity: DORINDA 4 aa5 Historical: - Allergies: 13:46 Codeine; aa5 - PMHx: 13:46 Diabetes - IDDM; Hyperlipidemia; Hypertension; aa5 - PSHx: 13:46 knee replacement; aa5 Assessment: 14:30 Pain: Complains of pain in right big toe Quality of pain is described as throbbing. mb9 Neuro: Level of Consciousness is awake, alert, obeys commands. Cardiovascular: Patient's skin is warm and dry. Respiratory: Airway is patent Respiratory effort is even, unlabored, Respiratory pattern is regular, symmetrical. Derm: Skin is pink, warm \\T\\ dry. Musculoskeletal: Range of motion: intact in all extremities, Swelling present in right big toe. 15:30 Reassessment: Patient is alert, oriented x 3, equal unlabored respirations, skin aa5 warm/dry/pink. Vital Signs: 13:44 BP 143 / 95; Pulse 66; Resp 18 S; Temp 98.4(TE); Pulse Ox 98% on R/A; aa5 ED Course: 13:20 Patient arrived in ED. am2 13:30 Christiana Valdez FNP-C is [facility]. kb 13:30 Srini Harvey MD is Attending Physician. kb 13:44 Arm band placed on. aa5 13:47 Triage completed. aa5 14:02 Breann Nicole, RN is Primary Nurse. mb9 14:31 Placed in gown. Bed in low position. Call light in reach. Side rails up X 1. Client mb9 placed on continuous cardiac and pulse oximetry monitoring. NIBP monitoring applied. phototypesetting equipment monitor on. 14:31 No provider procedures requiring assistance completed. Patient did not have IV access mb9 during this emergency room visit. Administered Medications: 14:17 Drug: Lidocaine Infiltration (1 %) 1 vials Volume: 5 ml; Route: Infiltration; mb9 14:17 Drug: Bupivacaine Infiltration (0.5 %) 1 vials Volume: 10 ml; Route: Infiltration; mb9 Medication: 14:31 VIS not applicable for this client. mb9 Outcome: 15:11 Discharge ordered by MD. kb 15:30 Discharged to home via wheelchair, with significant other. aa5 15:30 Condition: stable 15:30 Discharge instructions given to patient, significant other, Instructed on discharge instructions, follow up and referral plans. medication usage, Demonstrated understanding of instructions, follow-up care, medications, Prescriptions given X 1. 15:31 Patient left the ED. aa5 Signatures: Christiana Valdez FNP-C FNP-Cristel Deal RN RN aa5 Haley Pollard am2 Breann Nicole, RN RN mb9
[2022-11-06 15:50] VITALS: BP 143/95; TEMP 98.4; O2SAT 98
== END 2022-11-06 15:31 | disposition home or self-care (01) ==
LOC: ER 13:16
DX: L60.0 Ingrowing nail (principal); Z88.5 Allergy status to narcotic agent
CPT/HCPCS: 64450; 99284; J2001

== ENCOUNTER 2024-04-06 11:50 | Emergency (ER) | payer OTHER ==
--- OUTSIDE RECORDS SUMMARY | 2024-04-06 11:54 | XMS REPORT | Clinical Summary ---
Author Name Unknown Organization [facility] Address [address] [place] [address] Care Team Providers Care [employer] Name Role Phone Carlos Ramirez APRN Primary Care Provider [phone] Allergies No known active allergies Medications Medication Sig Dispensed Refills Start Date End Date Status propranolol (INDERAL LA) 120 mg 24 hr capsule Take 120 capsules (14,400 mg) by mouth daily. 12/18/2018 Active LANTUS SOLOSTAR U-100 INSULIN 100 unit/mL (3 mL) insulin pen Inject 75 Units under the skin twice daily. 04/26/2019 Active furosemide (LASIX) 20 mg tablet Take 1 tablet (20 mg) by mouth daily. 01/21/2016 Active escitalopram (LEXAPRO) 20 mg tablet Take 1 tablet (20 mg) by mouth daily. 10/26/2002 Active amLODIPine (NORVASC) 10 mg tablet Take 1 tablet (10 mg) by mouth daily. Active zolpidem (AMBIEN) 10 mg tablet Take 1 tablet (10 mg) by mouth at bedtime. 12/25/2017 Active olmesartan (BENICAR) 20 mg tablet Take 1 tablet (20 mg) by mouth. 12/02/2017 Active semaglutide (Ozempic) 0.25 mg or 0.5 mg(2 mg/1.5 mL) pnij 09/03/2022 Active Active Problems Problem Noted Date Diagnosed Date Renal mass 04/26/2019 Encounters Date Type Department Care Team Description 10/27/2023 2:30 PM CDT Telemedicine [facility] [address] [facility], 7th [place] [address] Carlos Ramirez APRN Cotta, Brittney H, MD Renal mass (Primary Dx); Acquired complex renal cyst 10/23/2023 1:00 PM CDT Ancillary Procedure MD [facility] [place] [address] [place] [address] Carlos Ramirez APRN Renal mass; Acquired complex renal cyst 10/23/2023 12:20 PM CDT Ancillary Procedure MD [facility] [place] [address] [place] [address] Carlos Ramirez APRN Renal mass; Acquired complex renal cyst after 04/07/2023 Medical History Medical History Date Comments Renal mass 04/26/2019 Chronic inflammatory demyelinating polyradiculon europathy Social History Tobacco Use Types Packs/Day Years Used Date Smoking Tobacco: Never Assessed Sex and Gender Information Value Date Recorded Sex Assigned at Female 07/15/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 Gender Identity Female 07/15/2021 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 Sexual Orientation Straight 07/15/2021 11 :24 AM 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 Job Start Date Occupation Industry Not on file Not on file Not on file Obstetrics History Last Filed Vital Signs Vital Sign Reading Time Taken Comments Blood Pressure - - Pulse - - Temperature - - Respiratory Rate - - Oxygen Saturation - - Inhaled Oxygen Concentration - - Weight 114.6 kg (252 lb 10.4 oz) 2023 11:59 AM CDT Height - - Body Mass Index 39.65 09/30/2021 11:16 AM CDT Plan of Treatment Upcoming Encounters Date Type Department Care Team (Late st Contact Info) Description 10/21/2024 11:45 AM CDT Lab MD [facility] [address] [place] [address] Judith Conway PA [address] [place] [address] [email or web address] 10/21/2024 12:35 PM CDT Ancillary Procedure MD [facility] [place] [address] [place] [address] Judith Conway PA [address] [place] [address] [email or web address] 10/25/2024 2:30 PM CDT Telemedicine [facility] [address] [facility], 7th [place] [address] Mansi Pierce MD [address] [place] [address] [email or web address] Maintenance Due Date Last Done Comments Pneumococcal Vaccine: 65+ Years (1 of 1 - PCV) 014 COVID-19 Vaccine (2 - season) 2024 Influenza Vaccine (#1) 2024 Procedures Procedure Name Priority Date/Time Associated Diagnosis Comments CT ABDOMEN W WO CONTRAST Routine 10/23/2023 1:28 PM CDT Renal mass Acquired complex renal cyst XR CHEST 2 VW Routine 10/23/2023 12:09 PM CDT Renal mass Acquired complex renal cyst .CBC Routine 10/23/2023 11:43 AM CDT Renal mass Acquired complex renal cyst BASIC METABOLIC PANEL, CALCIUM TOTAL Routine 10/23/2023 11:43 AM CDT Renal mass Acquired complex renal cyst COMPLETE BLOOD COUNT W/ DIFFERENTIAL Routine 10/23/2023 11:43 AM CDT Renal mass Acquired complex renal cyst after 04/07/2023 Results * CT Abdomen with and without Contrast (10/23/2023 1:28 PM CDT) Anatomical Region Laterality Modality Abdomen Computed Tomogra phy 10/23/2023 3:44 PM CDT Impressions 10/23/2023 4:17 PM CDT In the midpole of the right kidney, there is a Bosniak III/IV cyst with thick enhancing jacobs and septae that has enlarged from 0.5 to 1.6 cm since 2021. A 1.7 cm hypodense lesion in the midpole of the left kidney and a Bosniak 2F cyst in the lower pole of the left kidney are unchanged.. ACTIONABLE ITEMS/RECOMMENDATIONS*: Bosniak III/IV right renal cyst suspicious for malignancy *An Actionable Finding is a finding that may be unrelated to the original reason for imaging but potentially actionable, meaning further investigation may be necessary. The Actionable Findings Vigilance Unit (AFVU) assists medical providers with responding to additional radiologic findings that are unexpected and potentially actionable. Narrative 10/23/2023 4:17 PM CDT FULL RESULT: Examination: CT ABDOMEN W WO CONTRAST on 10/23/2023 1:28 PM. Clinical History: Renal mass Acquired complex renal cyst Indication: renal masses Comparison: 10/17/2022. Technique: CT ABDOMEN W WO CONTRAST. FINDINGS: Lower Thorax: Stable fibrosis in the lung bases. No suspicious pulmonary nodules. Hepatobiliary: No suspicious hepatic lesion. There is a liver cyst. No biliary dilatation. The gallbladder is absent. Spleen: No splenomegaly or splenic mass. Pancreas: There is a stable 1.3 cm cystic lesion in the pancreatic head (11:112). Adrenal Glands: Stable benign subcentimeter adrenal nodules. Kidneys: No hydronephrosis. A 1.8 cm hypodense lesion in the midpole of the left kidney (7/253) has been stable since 2019. A 1 cm Bosniak IIF cyst in the lower pole of the left kidney (7/272) is unchanged. In the midpole of the right kidney, a 1.6 cm complex cyst with thick enhancing jacobs (7:62) and septations (Bosniak III/IV) has enlarged, previously measuring 9 mm. There are bilateral simple renal cysts. Gastrointestinal Tract: No bowel obstruction or mass. Peritoneum/Retroperitoneum: No peritoneal fluid or mass. Lymph Nodes: There is no abdominal adenopathy. Musculoskeletal: No suspicious skeletal lesions. There is screw fixation of the lower lumbar vertebrae. Procedure Note Jelena Berry MD - 10/23/2023 FULL RESULT: Examination: CT ABDOMEN W WO CONTRAST on 10/23/2023 1:28 PM. Clinical History: Renal mass Acquired complex renal cyst Indication: renal masses Comparison: 10/17/2022. Technique: CT ABDOMEN W WO CONTRAST. FINDINGS: Lower Thorax: Stable fibrosis in the lung bases. No suspicious pulmonarynodules. Hepatobiliary: No suspicious hepatic lesion. There is a liver cyst. Nobiliary dilatation. The gallbladder is absent. Spleen: No splenomegaly or splenic mass. Pancreas: There is a stable 1.3 cm cystic lesion in the pancreatic head(11:112). Adrenal Glands: Stable benign subcentimeter adrenal nodules. Kidneys: No hydronephrosis. A 1.8 cm hypodense lesion in the midpole ofthe left kidney (7/253) has been stable since 2019. A 1 cm Bosniak IIFcyst in the lower pole of the left kidney (7/272) is unchanged. In themidpole of the right kidney, a 1.6 cm complex cyst with thick enhancingwalls (7:62) and septations (Bosniak III/IV) has enlarged, previouslymeasuring 9 mm. There are bilateral simple renal cysts. Gastrointestinal Tract: No bowel obstruction or mass. Peritoneum/Retroperitoneum: No peritoneal fluid or mass. Lymph Nodes: There is no abdominal adenopathy. Musculoskeletal: No suspicious skeletal lesions. There is screw fixationof the lower lumbar vertebrae. IMPRESSION: In the midpole of the right kidney, there is a Bosniak III/IV cyst withthick enhancing jacobs and septae that has enlarged from 0.5 to 1.6 cmsince 2021. A 1.7 cm hypodense lesion in the midpole of the left kidneyand a Bosniak 2F cyst in the lower pole of the left kidney areunchanged.. ACTIONABLE ITEMS/RECOMMENDATIONS*: Bosniak III/IV right renal cystsuspicious for malignancy *An Actionable Finding is a finding that may be unrelated to the originalreason for imaging but potentially actionable, meaning furtherinvestigation may be necessary. The Actionable Findings Vigilance Unit(AFVU) assists medical providers with responding to additional radiologicfindings that are unexpected and potentially actionable. Carlos Ramirez APRN [facility] [place] ORDERABLES * X-ray Chest 2 Views (10/23/2023 12:09 PM CDT) Anatomical Region Laterality Modality Chest Digital Radiogra phy 10/23/2023 1:17 PM CDT Impressions 10/23/2023 1:18 PM CDT Stable exam without evidence of intrathoracic metastatic disease or acute cardiopulmonary process. ACTIONABLE ITEMS/RECOMMENDATIONS*: None. *An Actionable Finding is a finding that may be unrelated to the original reason for imaging but potentially actionable, meaning further investigation may be necessary. The Actionable Findings Vigilance Unit (AFVU) assists medical providers with responding to additional radiologic findings that are unexpected and potentially actionable. Narrative 10/23/2023 1:18 PM CDT FULL RESULT: Examination: XR CHEST 2 VW on 10/23/2023 12:09 PM. Clinical History: Renal mass Acquired complex renal cyst Indication: Evaluation of Disease Progression Comparison: Chest radiograph 10/17/2022 Technique: Posteroanterior, lateral and dual-energy radiographs of the chest Findings: Support Apparatus: None. Lungs/Pleura: The lungs are adequately inflated without acute airspace consolidation or new radiographically apparent pulmonary nodule. No pleural effusion or pneumothorax. Mediastinum: The heart size and aortic contour are within normal limits. No mediastinal or hilar lymphadenopathy. Other: No destructive bone lesion or acute fracture is appreciated in the thorax. Bridging osteophytes again seen in the lower thoracic spine. Procedure Note Britntey Rodas MD - 10/23/2023 FULL RESULT: Examination: XR CHEST 2 VW on 10/23/2023 12:09 PM. Clinical History: Renal mass Acquired complex renal cyst Indication: Evaluation of Disease Progression Comparison: Chest radiograph 10/17/2022 Technique: Posteroanterior, lateral and dual-energy radiographs of thechest Findings: Support Apparatus: None. Lungs/Pleura: The lungs are adequately inflated without acute airspaceconsolidation or new radiographically apparent pulmonary nodule. Nopleural effusion or pneumothorax. Mediastinum: The heart size and aortic contour are within normal limits.No mediastinal or hilar lymphadenopathy. Other: No destructive bone lesion or acute fracture is appreciated in thethorax. Bridging osteophytes again seen in the lower thoracic spine. IMPRESSION: Stable exam without evidence of intrathoracic metastatic disease or acutecardiopulmonary process. ACTIONABLE ITEMS/RECOMMENDATIONS*: None. *An Actionable Finding is a finding that may be unrelated to the originalreason for imaging but potentially actionable, meaning furtherinvestigation may be necessary. The Actionable Findings Vigilance Unit(AFVU) assists medical providers with responding to additional radiologicfindings that are unexpected and potentially actionable. Carlos Ramirez KATHY IMG DIAGNOSTIC IMAGI NG ORDERABLES * .CBC (10/23/2023 11:43 AM CDT) White Blood Cell 8.4 4.1 - 10.5 K/uL 10/23/2023 11:50 AM CDT [facility] Red Blood Cell 4.57 3.99 - 5.46 M/uL 10/23/2023 11:50 AM CDT [facility] Hemoglobin 13.1 12.2 - 15.3 g/dL 10/23/2023 11:50 AM CDT [facility] Hematocrit 40.1 36.4 - 46.8 % 10/23/2023 11:50 AM CDT [facility] Mean Cell Volume 88 82 - 99 fL 10/23/19 11:50 AM CDT [facility] Mean Cell Hemoglobin 28.7 26.6 - 33.2 pg 10/23/2023 11:50 AM CDT [facility] Mean Cell Hemoglobin Concentration 32.7 31.1 - 35.2 g/dL 10/23/2023 11:50 AM CDT [facility] RDW-SD 43.5 37.5 - 49.7 fL 10/23/2023 11:50 AM CDT [facility] Red Cell Diameter Width 13.3 11.6 - 15.5 % 10/23/2023 11:50 AM CDT [facility] Platelet 211 160 - 397 K/uL 10/23/2023 11:50 AM CDT [facility] Mean Platelet Volume 9.3 9.1 - 12.6 fL 10/23/2023 11:50 AM CDT [facility] Neutrophil % 71.0 43.2 - 72.7 % 10/23/2023 11:50 AM CDT [facility] Lymphocyte % 18.0 16.8 - 46.2 % 10/23/2023 11:50 AM CDT [facility] Monocyte % 7.7 5.1 - 12.5 % 10/23/2023 11:50 AM CDT [facility] Eosinophil % 2.3 0.4 - 6.3 % 10/23/2023 11:50 AM CDT [facility] Basophil % 0.6 0.2 - 1.4 % 10/23/2023 11:50 AM CDT [facility] IGRE % 0.4 0.1 - 1.5 % 10/23/2023 11:50 AM CDT [facility] Comment:The IGRE% includes M etamyelocytes, Myelocytes and Promyelocytes. Neutrophil Abs 5.96 1.95 - 7.25 K/uL 10/23/2023 11:50 AM CDT [facility] Lymphocyte Abs 1.51 1.01 - 3.24 K/uL 10/23/2023 11:50 AM CDT [facility] Monocyte Abs 0.65 0.24 - 0.85 K/uL 10/23/2023 11:50 AM CDT [facility] Eosinophil Abs 0.19 0.02 - 0.50 K/uL 10/23/2023 11:50 AM CDT [facility] Basophil Abs 0.05 0.02 - 0.09 K/uL 10/23/2023 11:50 AM CDT [facility] IG Abs 0.03 0.01 - 0.12 K/uL 10/23/2023 11:50 AM CDT [facility] Blood Venipuncture / Unknown 10/23/2023 11:43 AM CDT 10/23/2023 11:43 AM CDT Carlos Ramirez KATHY LAB BLOOD ORDERABLES [facility] [address] * (ABNORMAL) Basic Metabolic Panel- Total Calcium (10/23/2023 11:43 AM CDT) eGFR 71 >=60 mL/min/1.7 3 sq. m 10/23/2023 12:08 PM CDT [facility] Comment: The eGFRcr is calculated with the 2020 CKD-EPI creatinine equation using creatinine, patient's age, and sex for adults 18 years of age and older. Other factors, especially muscle mass, may affect accuracy and need to be considered. According to the Kidney Disease: Improving Global Outcomes (KDIGO) CKD Work Group 2012 Clinical Practice Guideline, chronic kidney disease (CKD) is defined as the abnormalities of kidney structure or function, present for more than 3 months, with implications for health. CKD should be classified by cause, GFR category, and albuminuria category. KDIGO guidelines provide the following GFR categories. Stage / Description / GFR mL/min/1.73 m2: G1* / Normal or high / >= 90 G2* / Mildly decreased / 60-89 G3a / Mildly to moderately decreased / 45-59 G3b / Moderately to severely decreased / 30-44 G4 / Severely decreased / 15-29 G5 / Kidney failure / <15 *In the absence of evidence of kidney damage, neither G1 nor G2 fulfill criteria for CKD. Calcium Level Total 9.8 8.2 - 10.2 mg/dL 10/23/2023 12:08 PM T [facility] Sodium Level 133(L) 136 - 145 mmol/L 10/23/2023 12:08 PM T [facility] Potassium Level 4.8(H) 3.4 - 4.5 mmol/L 10/23/2023 12:08 PM T [facility] Chloride 100 98 - 107 mmol/L 10/23/2023 12:08 PM CDT [facility] CO2 23 22 - 29 mmol/L 10/23/2023 12:08 PM T [facility] Anion Gap 10 4 - 14 mmol/L 10/23/2023 12:08 PM CDT [facility] Creatinine 0.85 0.51 - 0.95 mg/dL 10/23/2023 12:08 PM CDT [facility] BUN 21 6 - 23 mg/dL 10/23/2023 12:08 PM T [facility] Glucose Level 122(H) 70 - 99 mg/dL 10/23/2023 12:08 PM T [facility] Comment: Effective 01/30/16, the glucose reference intervals have been updated based on [place] Diabetes [employer] guidelines (Standards of Medical Care in Diabetes 2016. Diabetes Care 2016; 39: S13-S22). Fasting blood glucose: Normal: 70-99 mg/dL Impaired fasting glucose (increased risk for diabetes or pre-diabetes): 100-125 mg/dL Diabetes mellitus: >/=126 mg/dL Random blood glucose: Normal: 70-199 mg/dL Note: Random glucose >100 mg/dL is associated with increased risk for diabetes. Blood Venipuncture / Unknown 10/23/2023 11:43 AM CDT 10/23/2023 11:43 AM CDT Carlos Ramirez APRN LAB BLOOD ORDERABLES [place] [address] [address] [place] [address], after 04/07/2023 Care Teams [employer] Relationship Specialty Start Date End Date Carlos Ramirez APRN [address] [place] [address] [email or web address] PCP - General 11/04/21
[2024-04-06 13:00] LABS: Specific Gravity 1.028 (1.005-1.030); Sqamous Epithelial <5 /HPF (None Seen); Urine Bacteria None Seen /HPF (<20); Urine Bilirubin NEGATIVE (Negative); Urine Blood Negative (Negative); Urine Clarity Clear (Clear); Urine Color Yellow (Yellow); Urine Crystals Unidentified Few /HPF (None Seen); Urine Culture Reflex Order NOT NEEDED; Urine Glucose NEGATIVE (Negative); Urine Ketones NEGATIVE (Negative); Urine Microscopic Reflex YN ORDER UMIC; Urine Mucus Slight /HPF (None Seen); Urine Nitrite NEGATIVE (Negative); Urine Protein NEGATIVE (Negative); Urine RBC <5 /HPF (None Seen); Urine Urobilinogen Normal (Normal); Urine WBC <5 /HPF (<5); Urine WBC Clump Rare /HPF (None Seen); Urine pH 5.5 (5.0-7.0)
[2024-04-06] MEDS ORDERED: ONDANSETRON 4 MG/2 ML VIAL ONE (13:09)
[2024-04-06] MEDS ORDERED: MORPHINE 2 MG/ML SYR ONE (13:10)
[2024-04-06] MEDS ORDERED: NA CHLORIDE 0.9% 1,000 ML ONE (13:10)
[2024-04-06] MEDS ORDERED: KETOROLAC 30 MG/ML INJ ONE (13:10)
--- NOTE | 2024-04-06 13:10 | RAD REPORT ---
Stone Protocol CLINICAL INDICATION: Female, 73 years old.FLANK PAIN TECHNIQUE: CT abdomen and pelvis was performed, without IV contrast, as per department protocol using a CT stone protocol. Axial, sagittal and coronal reconstructions were obtained. One or more of the following dose reduction techniques were used: Automated exposure control, adjustment of the mA and/o r kV according to the patient size, and/or iterative reconstruction. Unless otherwise specified, incidental findings do not require dedicated imaging follow-up. [id number]. IV CONTRAST: Not administered. COMPARISON: None FINDINGS: The lack of intravenous contrast limits the sensitivity of this exam for evaluation of solid visceral organs, vascular structures, and retroperitoneum. LOWER CHEST: The visualized lung bases are clear. LIVER: Normal in size and contour. No focal lesion. GALLBLADDER/BILE DUCTS: No biliary ductal dilatation.?Classically. PANCREAS: No mass, ductal dilation, or sandy-pancreatic fluid. SPLEEN: Normal size. No focal lesion. ADRENALS: Normal; no mass. KIDNEYS AND URETERS: No ureteral calculi identified. Bilateral indeterminate attenuation renal lesion s identified. Punctate stone left kidney. URINARY BLADDER: Normal contour. GASTROINTESTINAL TRACT: Stomach is non-dilated. Small bowel has normal course and caliber. No colonic wall thickening or pericolonic inflammatory changes. PERITONEUM: No free fluid. ABDOMINAL AORTA AND OTHER VESSELS: Normal caliber aorta and IVC. Atherosclerosis.. REPRODUCTIVE ORGANS: No pathologic process. MUSCULOSKELETAL: No acute or suspicious osseous abnormality. L4-5 fusion. ADDITIONAL FINDINGS: None. IMPRESSION: 1. Nonobstructive left nephrolithiasis. No ureteral calculi or hydronephrosis. 2. Indeterminate bilateral renal lesions. Recommend nonemergent renal protocol CT or MRI for further evaluation.
[2024-04-06 13:13] LABS: Absolute Basophils 0.1 K/uL (0-0.5); Absolute Eosinophils 0.3 K/uL (0-0.5); Absolute Lymphocytes (CBC) 1.3 K/uL (0.7-4.9); Absolute Monocytes 0.8 K/uL (0.1-1.3); Absolute Neutrophil 5.3 K/uL (1.8-8.0); Basophils % 1.3 % (0-1.3); Eosinophils % 3.8 % (0-4.4); Hematocrit 36.8 % (36.0-45.0); Hemoglobin 12.6 g/dL (12.0-15.0); Lymphocytes % 17.3 % (15.3-44.8); MCH 29.1 pg (27.0-35.0); MCHC 34.1 g/dL (32.0-36.0); MCV 85.4 fL (80-100); MPV 7.9 fL (7.6-11.3); Monocytes % 9.7 % (3.3-12.3); Neutrophils % 67.9 % (41.7-73.7); Platelets 203 thou/uL (152-406); RBC Red Blood Cell Count 4.31 M/uL (3.86-4.86); Red Cell Distribution Width 13.5 % (12.1-15.2)
[2024-04-06 13:36] LABS: Albumin 3.7 g/dL (3.4-5.0); Albumin/Globulin Ratio 0.9 (1.1-1.8); Anion Gap 9.2 mEq/L (5.0-15.0); Bilirubin Total 0.5 mg/dL (0.2-1.0); Potassium 4.2 mEq/L (3.5-5.1); Protein, Total 7.7 g/dL (6.4-8.2)
[2024-04-06] MEDS ORDERED: CEFTRIAXONE 1000 MG/VIAL ONE (14:00)
[2024-04-06] MEDS ORDERED: CIPROFLOXACIN HCL 500 MG TAB ONE (14:01)
[2024-04-06] MEDS ORDERED: NA CHLORIDE 0.9% 100 ML ONE (14:01)
--- NOTE | 2024-04-06 14:59 | ER ---
Nurse's Notes [facility] Name: Sasha Mathews Age: 73 yrs Sex: Female : 1950 Arrival Date: 04/06/2024 Time: 11:50 Bed 6 Private MD: Diagnosis: Unspecified symptoms and signs involving the musculoskeletal system;UTI/ Urinary tract infection, site not specified;Muscle spasm of back;Low back pain;Malignant neoplasm of unspecified kidney, except renal pelvis Presentation: 04/06 12:08 Chief complaint: Patient states: right flank, back, and neck pain started last week, tm6 after a tearing sensation. Feels like my muscles over my ribs have torn. I have several ruptured discs and history of kidney cancer. Coronavirus screen: Vaccine status: Patient reports receiving the 2nd dose of the covid vaccine. Ebola Screen: Patient negative for fever greater than or equal to 101.5 degrees Fahrenheit, and additional compatible Ebola Virus Disease symptoms Patient denies exposure to infectious person. Patient denies travel to an Ebola-affected area in the 21 days before illness onset. No symptoms or risks identified at this time. Initial Sepsis Screen: Does the patient meet any 2 criteria? No. Patient's initial sepsis screen is negative. Does the patient have a suspected source of infection? No. Patient's initial sepsis screen is negative. Risk Assessment: Do you want to hurt yourself or someone else? Patient reports no desire to harm self or others. Onset of symptoms was March 30, 2024. 12:08 Method Of Arrival: Wheelchair tm6 12:08 Acuity: DORINDA 3 tm6 Triage Assessment: 12:08 General: Appears in no apparent distress. Behavior is calm, cooperative. Pain: tm6 Complains of pain in back, posterior aspect of right lateral abdomen and anterior aspect of right lateral abdomen Pain currently is 10 out of 10 on a pain scale. Quality of pain is described as sharp, tearing Pain began one week ago. EENT: No signs and/or symptoms were reported regarding the EENT system. Neuro: Level of Consciousness is awake, alert, obeys commands, Oriented to person, place, time, situation. Cardiovascular: Patient's skin is warm and dry. Respiratory: Airway is patent Respiratory effort is even, unlabored, Respiratory pattern is regular, symmetrical. GI: No signs and/or symptoms were reported involving the gastrointestinal system. Abdomen is round non-distended. : No signs and/or symptoms were reported regarding the genitourinary system. Derm: No signs and/or symptoms reported regarding the dermatologic system. Musculoskeletal: Circulation, motion, and sensation intact. Reports pain in posterior aspect of right lateral abdomen and anterior aspect of right lateral abdomen Pain is 10 out of 10 on a pain scale. Historical: - Allergies: 12:12 Codeine; tm6 - PMHx: 12:12 Diabetes - IDDM; Hyperlipidemia; Hypertension; Chronic Inflammatory Demyelinating tm6 Polyradiculoneuropathy (knee replacement); kidney cancer (knee replacement); 12:15 asbestosis; Coronary atherosclerosis; tm6 - PSHx: 12:12 knee replacement; tm6 12:15 coronary stent; tm6 - Immunization history:: Client reports receiving the 2nd dose of the Covid vaccine. - Infectious Disease History:: Denies. - Social history:: Smoking status: Patient denies any tobacco usage or history of. Patient/guardian denies using alcohol. Screenin:50 [facility] ED Fall Risk Assessment (Adult) History of falling in the last 3 months, ph including since admission No falls in past 3 months (0 pts) Confusion or Disorientation No (0 pts) Intoxicated or Sedated No (0 pts) Impaired Gait No (0 pts) Mobility Assist Device Used No (0 pt) Altered Elimination No (0 pt) Score/Fall Risk Level 0 - 2 = Low Risk Oriented to surroundings, Maintained a safe environment, Hourly rounding (assess needs \T\ fall precautionary measures) done. Abuse screen: Denies threats or abuse. Denies injuries from another. Nutritional screening: No deficits noted. Tuberculosis screening: No symptoms or risk factors identified. Assessment: 13:00 General: Appears in no apparent distress. Behavior is calm, cooperative. Pain: ph Complains of pain in back and anterior aspect of right lateral abdomen and posterior aspect of right lateral abdomen. Neuro: Level of Consciousness is awake, alert, obeys commands, Oriented to person, place, time, situation. Cardiovascular: Capillary refill < 3 seconds Patient's skin is warm and dry. Respiratory: Airway is patent Respiratory effort is even, unlabored. : Reports pain in right flank(s). Derm: Skin is pink, warm \T\ dry. Vital Signs: 12:07 BP 136 / 72; Pulse 71; Resp 19; Temp 98.9(TE); Pulse Ox 95% on R/A; MAP 89 mmHg; Weight tm6 104.33 kg; Height 5 ft. 7 in. ; Pain 10/10; 13:00 BP 112 / 54; Pulse 67; Resp 18; Pulse Ox 99% on R/A; ph 13:51 BP 115 / 54; Pulse 66; Resp 18; Pulse Ox 96% on R/A; ph 12:07 Body Mass Index 36.02 (104.33 kg, 170.18 cm) tm6 12:07 Pain Scale: Adult tm6 ED Course: 11:58 Patient arrived in ED. ra3 12:08 Arm band placed on left wrist. tm6 12:09 Cesar Galarza MD is Attending Physician. osvaldo 12:11 Triage completed. tm6 12:38 CT Stone Protocol In Process Unspecified. EDMS 12:46 Urine Culture Sent. tm6 12:46 Urinalysis w/ reflexes Sent. tm6 12:49 Patient placed in an exam room, on a stretcher. ll1 13:00 Initial lab(s) drawn, by id, sent to lab. Inserted saline lock: 20 gauge in right bp forearm, using aseptic technique. Blood collected. Flushed with 10 mL NS. 13:05 Kit Butler, RN is Primary Nurse. rs5 13:32 Brittney Krause, RN is Primary Nurse. ph 13:51 Patient has correct armband on for positive identification. Bed in low position. Call ph light in reach. Side rails up X 1. Client placed on continuous cardiac and pulse oximetry monitoring. NIBP monitoring applied. technology and engineering teacher on. Door closed. Noise minimized. Warm blanket given. Pillow given. 15:32 No provider procedures requiring assistance completed. IV discontinued, intact, bp bleeding controlled, No redness/swelling at site. Pressure dressing applied. Administered Medications: 13:17 Drug: morphine IVP or IV 2 mg IVP once over 4 mins Route: IVP; Infused Over: 4 mins; rs5 Site: right forearm; 14:14 Follow up: Response: No adverse reaction bp 13:18 Drug: NS 0.9% IV 1000 ml IV at 1 bolus Per protocol; 1000 mL bolus Route: IV; Rate: 1 rs5 bolus; Site: right forearm; 14:14 Follow up: IV Status: Completed infusion; IV Intake: 1000ml bp 13:18 Drug: TORadol - Ketorolac IVP 15 mg IVP once Route: IVP; Site: right forearm; rs5 14:13 Follow up: Response: No adverse reaction bp 13:18 Drug: Ondansetron IVP 4 mg IVP once; over 2 minutes Route: IVP; Site: right forearm; rs5 14:13 Follow up: Response: No adverse reaction bp 14:00 Drug: Rocephin IV 1 grams IV at per protocol once; Given slow IV push per pharmacy bp instructions Route: IV; Rate: per protocol; Site: right antecubital; 14:14 Follow up: IV Status: Completed infusion; IV Intake: 100ml bp 14:00 Drug: Ciprofloxacin PO 500 mg PO once Route: PO; bp 14:14 Follow up: Response: No adverse reaction bp Medication: 13:51 VIS not applicable for this client. ph Intake: 14:14 IV: 1000ml; Total: 1000ml. bp 14:14 IV: 100ml; Total: 1100ml. bp Outcome: 14:59 Discharge ordered by . osvaldo 15:33 Discharged to home ambulatory, bp 15:33 Condition: stable 15:33 Discharge instructions given to patient, Instructed on discharge instructions, follow up and referral plans. medication usage, Demonstrated understanding of instructions, follow-up care, medications, Prescriptions given X 3, 15:33 Patient left the ED. bp Signatures: Dispatcher [employer] EDSC Cesar Galarza MD MD cha Hall, Patricia, RN RN ph Peltier, Brian, RN RN bp Dileep Rogers RN RN ll1 Kit Butler RN RN rs5 Opal Stoner RN RN tm6 Ashleigh Garcia ra3 Corrections: (The following items were deleted from the chart) 12:16 12:15 PMHx: lung disease; tm6 tm6
--- NOTE | 2024-04-06 15:00 | EDPHYS ---
Physician Documentation [facility] Name: Sasha Mathews Age: 73 yrs Sex: Female : 1950 Arrival Date: 04/06/2024 Time: 11:50 Bed 6 Private MD: IBETH Physician Cesar Galarza HPI: 04/06 14:48 This 73 yrs old Female presents to ER via Wheelchair with complaints of Flank osvaldo Pain - right, Back Pain. 14:48 The patient complains of pain in the right mid back and right low back. The pain does osvaldo not radiate. Modifying factors: The symptoms are alleviated by remaining still, the symptoms are aggravated by movement, palpation/percussion. Associated signs and symptoms: The patient has no apparent associated signs or symptoms. Severity of pain: At its worst the pain was moderate in the emergency department the pain has improved moderately. The patient has experienced similar episodes in the past, several times. Historical: - Allergies: 12:12 Codeine; tm6 - PMHx: 12:12 Diabetes - IDDM; Hyperlipidemia; Hypertension; Chronic Inflammatory Demyelinating tm6 Polyradiculoneuropathy (knee replacement); kidney cancer (knee replacement); 12:15 asbestosis; Coronary atherosclerosis; tm6 - PSHx: 12:12 knee replacement; tm6 12:15 coronary stent; tm6 - Immunization history:: Client reports receiving the 2nd dose of the Covid vaccine. - Infectious Disease History:: Denies. - Social history:: Smoking status: Patient denies any tobacco usage or history of. Patient/guardian denies using alcohol. ROS: 14:53 Constitutional: Negative for fever, chills, and weight loss, Eyes: Negative for injury, osvaldo pain, redness, and discharge, ENT: Negative for injury, pain, and discharge, Neck: Negative for injury, pain, and swelling, Cardiovascular: Negative for chest pain, palpitations, and edema, Respiratory: Negative for shortness of breath, cough, wheezing, and pleuritic chest pain, Abdomen/GI: Negative for abdominal pain, nausea, vomiting, diarrhea, and constipation, : Negative for injury, bleeding, discharge, and swelling, MS/Extremity: Negative for injury and deformity, Skin: Negative for injury, rash, and discoloration, Neuro: Negative for headache, weakness, numbness, tingling, and seizure, Psych: Negative for depression, anxiety, suicide ideation, homicidal ideation, and hallucinations, Allergy/Immunology: Negative for hives, rash, and allergies, Endocrine: Negative for neck swelling, polydipsia, polyuria, polyphagia, and marked weight changes, Hematologic/Lymphatic: Negative for swollen nodes, abnormal bleeding, and unusual bruising, 14:53 Back: Positive for decreased range of motion, pain with movement, flank pain, on the right, Exam: 14:53 Constitutional: This is a well developed, well nourished patient who is awake, alert, osvaldo and in no acute distress. Head/Face: Normocephalic, atraumatic. Eyes: Pupils equal round and reactive to light, extra-ocular motions intact. Lids and lashes normal. Conjunctiva and sclera are non-icteric and not injected. Cornea within normal limits. Periorbital areas with no swelling, redness, or edema. ENT: Nares patent. No nasal discharge, no septal abnormalities noted. Tympanic membranes are normal and external auditory canals are clear. Oropharynx with no redness, swelling, or masses, exudates, or evidence of obstruction, uvula midline. Mucous membranes moist. Neck: Trachea midline, no thyromegaly or masses palpated, and no cervical lymphadenopathy. Supple, full range of motion without nuchal rigidity, or vertebral point tenderness. No Meningismus. Chest/axilla: Normal chest wall appearance and motion. Nontender with no deformity. No lesions are appreciated. Cardiovascular: Regular rate and rhythm with a normal S1 and S2. No gallops, murmurs, or rubs. Normal PMI, no JVD. No pulse deficits. Respiratory: Lungs have equal breath sounds bilaterally, clear to auscultation and percussion. No rales, rhonchi or wheezes noted. No increased work of breathing, no retractions or nasal flaring. Abdomen/GI: Soft, non-tender, with normal bowel sounds. No distension or tympany. No guarding or rebound. No evidence of tenderness throughout. Female : Normal external genitalia. MS/ Extremity: Pulses equal, no cyanosis. Neurovascular intact. Full, normal range of motion. Neuro: Awake and alert, GCS 15, oriented to person, place, time, and situation. Cranial nerves II-XII grossly intact. Motor strength 5/5 in all extremities. Sensory grossly intact. Cerebellar exam normal. Normal gait. Psych: Awake, alert, with orientation to person, place and time. Behavior, mood, and affect are within normal limits. 14:53 Back: pain, that is moderate, of the right mid back and right low back, ROM is painful, with all movement, with rotation to the right, with rotation to the left, normal spinal alignment noted, CVA tenderness, that is mild, is noted on the right, vertebral tenderness, is not appreciated, Vital Signs: 12:07 BP 136 / 72; Pulse 71; Resp 19; Temp 98.9(TE); Pulse Ox 95% on R/A; MAP 89 mmHg; Weight tm6 104.33 kg; Height 5 ft. 7 in. ; Pain 10/10; 13:00 BP 112 / 54; Pulse 67; Resp 18; Pulse Ox 99% on R/A; ph 13:51 BP 115 / 54; Pulse 66; Resp 18; Pulse Ox 96% on R/A; ph 12:07 Body Mass Index 36.02 (104.33 kg, 170.18 cm) tm6 12:07 Pain Scale: Adult tm6 MDM: 12:09 Patient medically screened. osvaldo 14:55 Differential diagnosis: nephrolithiasis, pyelonephritis, UTI, Cholelithiasis chronic osvaldo back pain, Fatigue Fracture Hydronephrosis Metastatic Disease Neoplasm Obesity Pyelonephritis Renal Infarction. Data reviewed: vital signs, nurses notes, lab test result(s), radiologic studies, CT scan. Consideration of Admission/Observation Escalation of care including admission/observation considered. I considered the following discharge prescriptions or medication management in the emergency department Medications were administered in the Emergency Department. See MAR. Independent interpretation of the following test(s) in the Emergency Department CT Scan: My interpretation is ct stone. Test considered but Not performed: Ultrasound no renal usg. Historians other than the Patient: Spouse/Significant Other: well informed. Care significantly affected by the following chronic conditions: Diabetes, Hypertension, Obesity. Counseling: I had a detailed discussion with the patient and/or guardian regarding the historical points, exam findings, and any diagnostic results supporting the discharge/admit diagnosis, lab results, radiology results, the need for outpatient follow up, for definitive care, a family practitioner. 04/06 12:12 Order name: CBC with Diff; Complete Time: 13:53 osvaldo 04/06 12:12 Order name: CMP; Complete Time: 13:53 [facility] 04/06 12:12 Order name: Lipase; Complete Time: 13:53 [facility] 04/06 12:12 Order name: Urinalysis w/ reflexes; Complete Time: 13:53 [facility] 04/06 12:12 Order name: Urine Culture [facility] 04/06 12:12 Order name: CT Stone Protocol; Complete Time: 13:53 [facility] 04/06 12:12 Order name: IV Saline Lock; Complete Time: 13:05 [facility] 04/06 12:12 Order name: Labs collected and sent; Complete Time: 13:05 [facility] Administered Medications: 13:17 Drug: morphine IVP or IV 2 mg IVP once over 4 mins Route: IVP; Infused Over: 4 mins; rs5 Site: right forearm; 14:14 Follow up: Response: No adverse reaction bp 13:18 Drug: NS 0.9% IV 1000 ml IV at 1 bolus Per protocol; 1000 mL bolus Route: IV; Rate: 1 rs5 bolus; Site: right forearm; 14:14 Follow up: IV Status: Completed infusion; IV Intake: 1000ml bp 13:18 Drug: TORadol - Ketorolac IVP 15 mg IVP once Route: IVP; Site: right forearm; rs5 14:13 Follow up: Response: No adverse reaction bp 13:18 Drug: Ondansetron IVP 4 mg IVP once; over 2 minutes Route: IVP; Site: right forearm; rs5 14:13 Follow up: Response: No adverse reaction bp 14:00 Drug: Rocephin IV 1 grams IV at per protocol once; Given slow IV push per pharmacy bp instructions Route: IV; Rate: per protocol; Site: right antecubital; 14:14 Follow up: IV Status: Completed infusion; IV Intake: 100ml bp 14:00 Drug: Ciprofloxacin PO 500 mg PO once Route: PO; bp 14:14 Follow up: Response: No adverse reaction bp Disposition Summary: 04/06/24 14:59 Discharge Ordered Notes: Location: Home osvaldo Condition: Stable osvaldo Diagnosis - Unspecified symptoms and signs involving the musculoskeletal system osvaldo - UTI/ Urinary tract infection, site not specified osvaldo - Muscle spasm of back osvaldo - Low back pain osvaldo - Malignant neoplasm of unspecified kidney, except renal pelvis osvaldo Followup: osvaldo - With: Private Physician - When: 2 - 3 days - Reason: Recheck today's complaints, Continuance of care, Re-evaluation by your physician Discharge Instructions: - Discharge Summary Sheet osvaldo - Chronic Back Pain osvaldo - Dysuria osvaldo - Muscle Cramps and Spasms osvaldo - Musculoskeletal Pain osvaldo - Urinary Tract Infection, Adult osvaldo - Urinary Tract Infection, Adult, [id number] osvaldo - Muscle Cramps and Spasms, [id number] osvaldo - Renal Mass [facility] Forms: - Medication Reconciliation Form osvaldo - Antibiotic Education osvaldo - Prescription Opioid Use osvaldo - Patient Portal Instructions [facility] - Leadership Thank You Letter [facility] Prescriptions: - diclofenac sodium 25 mg Oral tablet, delayed release (enteric coated) - take 1 tablet ORAL route every 8 hours; 30 tablet; Refills: 0, Product osvaldo Selection Permitted - Cipro 250 mg Oral tablet - take 1 tablet ORAL route every 12 hours; 14 tablet; Refills: 0, Product osvaldo Selection Permitted - Cyclobenzaprine 5 mg Oral tablet - take 1 tablet ORAL route 3 times per day As needed; 21 tablet; Refills: 0, [facility] Product Selection Permitted Signatures: Dispatcher [employer] Cesar Buchanan MD MD cha Peltier, Brian, RN RN Kit Quick, RN RN rs5 Opal Stoner RN RN tm6 Corrections: (The following items were deleted from the chart) 12:13 12:13 Stone Protocol+CT.RAD.BRZ ordered. IBETHMN IBETHMN 12:16 12:15 PMHx: lung disease; tm6 tm6
[2024-04-07 05:31] VITALS: TEMP 98.9
[2024-04-07 05:35] VITALS: BP 115/54; O2SAT 96
== END 2024-04-06 15:33 | disposition home or self-care (01) ==
LOC: ER 11:50
DX: N39.0 Urinary tract infection, site not specified (principal); R29.91 Unspecified symptoms and signs involving the musculoskeletal system; M62.830 Muscle spasm of back; M54.50 Low back pain, unspecified; N28.9 Disorder of kidney and ureter, unspecified
CPT/HCPCS: 87088; 85025; 81001; 87086; 36415; 87077; 87186; 83690; 80053; 76377; 74176; 99285; J2270; J2405; J7030; J0696